=== PATIENT | male | born 1970 | race Caucasian/White ===

== ENCOUNTER 2020-07-10 22:19 | Inpatient (IN) | payer OTHER ==
--- NOTE | 2020-07-10 22:36 | PDOC ---
History of Present Illness - General Chief Complaint: Pain Stated Complaint: LEFT SIDED PAIN & NAUSEA Time Seen by Provider: 07/10/20 22:32 History Source: Patient Exam Limitations: No Limitations - History of Present Illness Initial Comments: 50 yo M history HTN, prior EtOH abuse- drank 1 bottle of vodka per day up until a month ago when he states he quit cold turkey. Presents to the ED with LUQ pain, nausea, vomiting clear scant liquid for the past 1 day. He admits to recen t emotional distress as he has been dealing with a divorce. He states he has not had a drink in a month. He notes severe tremors in his hands. Now with dry heaves in the ED. Denies any allergies to meds. Past History - Medical History Allergies/Adverse Reactions: Allergies Allergy/AdvReac Type Severity Reaction Status Date / Time No Known Allergies Allergy Unverified 07/10/20 22:43 Home Medications: Ambulatory Orders Metoprolol Succinate 50 mg PO DAILY 07/10/20 Review of Systems - Review of Systems Able to Perform ROS?: Yes Comments:: GENERAL/CONSTITUTIONAL: No fever or chills. No weakness. HEAD, EYES, EARS, NOSE AND THROAT: No change in vision. No ear pain or discharge. No sore throat. CARDIOVASCULAR: No chest pain or shortness of breath. RESPIRATORY: No cough, wheezing, or hemoptysis. GASTROINTESTINAL: +N/V. No diarrhea or constipation. GENITOURINARY: No dysuria, frequency, or change in urination. MUSCULOSKELETAL: No joint or muscle swelling or pain. No neck or back pain. +Tremors SKIN: No rash. NEUROLOGIC: No headache, vertigo, loss of consciousness, or change in strength/sensation. ENDOCRINE: No increased thirst. No abnormal weight change. HEMATOLOGIC/LYMPHATIC: No anemia, easy bleeding, or history of blood clots. ALLERGIC/IMMUNOLOGIC: No hives or skin allergy. *Physical Exam - Physical Exam GENERAL: Awake, alert, and fully oriented. Appears anxious, diaphoretic. Actively dry heaving. +AOB HEAD: No signs of trauma EYES: PERRLA, EOMI, sclera anicteric, conjunctiva clear ENT: Auricles normal inspection, hearing grossly normal, nares patent, oropharynx clear without exudates. Dry mucosa NECK: Normal ROM, supple, no lymphadenopathy, JVD, or masses LUNGS: Breath sounds equal, clear to auscultation bilaterally. No wheezes, and no crackles HEART: Tachycardic with regular rhythm, normal S1 and S2, no murmurs, rubs or gallops ABDOMEN: Soft, nontender, normoactive bowel sounds. No guarding, no rebound. No masses EXTREMITIES: +Coarse tremors to the hands B/L. Normal range of motion, no edema. No clubbing or cyanosis. No cords, erythema, or tenderness NEUROLOGICAL: Cranial nerves II through XII grossly intact. Normal speech, normal gait. Motor and sensation intact SKIN: Diaphoretic, cool, normal turgor, no rashes or lesions noted. ED Treatment Course - LABORATORY CBC & Chemistry Diagram: 07/10/20 22:54 07/11/20 04:45 Medical Decision Making - Medical Decision Making 07/10/20 22:45 Patient states he stopped drinking 1 month ago, however, his symptoms are most consistent with alcohol withdrawal. As such, will give zofran and IV valium. Labs pending. If labs normal and symptoms improve, will recommend transfer to [facility] for detox. 07/10/20 23:59 Pt with multiple abnormal labs. Alcohol level is slightly elevated, which would confirm suspicion of EtOH withdrawal. Labs also show liver failure with transaminitis and elevated bilirubin. Anion gap is elevated as well. Drawing additional labs- lipase, B-hydroxybutyrate, lactate. Will continue fluids and benzos. Trop is elevated as well, which was just discussed via phone with Dr. Howe. She recommended that we not give aspirin at this time due to liver failure with low platelet count, risk of bleeding. EKG with no ST changes. Will plan for admission once additional labs have resulted. 07/11/20 00:43 Labs discussed with patient at bedside. He now admits to drinking alcohol yesterday, which is more consistent with the clinical picture. Will continue fluids. Awaiting remainder of labs for dispo. 07/11/20 01:46 Pt reports feeling better after second dose of valium. Tremors improving. Lactate has resulted, elevated at ~4. Still waiting for B-hydroxybutyrate results. Will give 1L of D5NS while waiting for that result. Also ordered banana bag. 07/11/20 02:35 B-hydroxybutyrate is positive. Will continue fluids with D5NS. Patient has no tremors at rest, but when he lifts his hands, he does have coarse tremors. He reports feeling much better than before. No longer diaphoretic, no longer vomiting. Microblog sent to hospitalist for admission. Will continue to monitor. 07/11/20 02:58 Case d/w Dr. Rodriguez. Will need a tele bed. RN contacting nursing ice platform supervisor at the [facility]. Will continue to monitor patient in ED, as he is at risk for DTs if not closely monitored. 07/11/20 04:36 Three liters given to patient. Will repeat labs to reassess. 07/11/20 05:50 Repeat labs show troponin negative x2 (initial troponin was detectable), B- hydroxybutyrate has decreased to ~15, and lactate has decreased to 2.1. Anion gap has normalized. Glucose is elevated, however, he was receiving D5NS to correct the ketones. Will continue fluids. Patient has also just received ativan 2mg IV, as he was becoming diaphoretic again. D/w hospitalist, agrees that patient can stay at [facility] as he is moving in the right direction. 07/11/20 06:19 Pt transported up to 2nd floor. Discharge - Discharge Information Problems reviewed: Yes Clinical Impression/Diagnosis: Hyperbilirubinemia, Thrombocytopenia, Alcoholic ketoacidosis Alcohol withdrawal Qualifiers: Complication of substance-induced condition: uncomplicated Qualified Code(s): F 10.230 - Alcohol dependence with withdrawal, uncomplicated Liver failure Qualifiers: Liver failure chronicity: unspecified chronicity Hepatic coma status: without hepatic coma Qualified Code(s): K72.90 - Hepatic failure, unspecified without coma Condition: Stable - Admission Yes - Follow up/Referral - Patient Discharge Instructions - Post Discharge Activity
[2020-07-10] MEDS ORDERED: SODIUM CHLORIDE 1,000 ML IV STA (22:37)
[2020-07-10] MEDS ORDERED: diazePAM CARPU-JECT 10 MG/2 ML DISP.SYRIN IVPUSH ONE ×2 (22:37→23:38)
[2020-07-10] MEDS ORDERED: FAMOTIDINE 20 MG/50 ML IVPB 20 MG/50 ML MG IVPB ONE ×2 (22:37→22:54)
[2020-07-10] MEDS ORDERED: ONDANSETRON 4 MG/2 ML VIAL IVPUSH ONE (22:37)
[2020-07-10] MEDS ORDERED: diazePAM CARPU-JECT 10 MG/2 ML DISP.SYRIN ONE (22:46)
[2020-07-10] MEDS ORDERED: ONDANSETRON 4 MG/2 ML VIAL ONE (22:47)
[2020-07-10 23:04] LABS: BASO % 0.6 % (0-2.0); EOS % 0.1 % (0-4.5); HEMATOCRIT 46.2 % (35.4-49); HEMOGLOBIN 15.9 GM/dl (11.7-16.9); LYMPH % 19.8 % (8-40); MCH 32.3 pg (25.7-33.7); MCHC 34.4 g/dl (32.0-35.9); MEAN CELL VOLUME 93.9 fl (80-96); MEAN PLT VOLUME 8.1 fl (7.5-11.1); MONO % 6.3 % (3.8-10.2); NEUT % 73.2 % (42.8-82.8); RBC 4.92 M/mm3 (4.00-5.60); RDW 15.2 % (11.9-15.9); WHITE BLOOD COUNT 5.4 K/mm3 (4.0-10.8)
[2020-07-10 23:11] LABS: PLATELET COUNT 52 K/MM3 (134-434)
[2020-07-10 23:17] LABS: ALBUMIN 4.9 g/dl (3.4-5.0); BILIRUBIN,TOTAL 7.6 mg/dl (0.2-1); CALCIUM 9.4 mg/dl (8.5-10); CREATININE 0.7 mg/dl (0.55-1.3); POTASSIUM 3.7 mmol/L (3.5-5.1); TOT PROT 8.5 g/dl (6.4-8.2)
[2020-07-11] MEDS ORDERED: diazePAM CARPU-JECT 10 MG/2 ML DISP.SYRIN ONE ×2 (00:14→03:13)
[2020-07-11] MEDS ORDERED: FOLIC ACID INJECTION - 1 MG, THIAMINE HCL 100 MG, MULTIVIT INJECTION ADULT 10 ML in SOD... IVPB ONE (01:41)
[2020-07-11] MEDS ORDERED: DEXTROSE 5%-NORMAL SALINE 1,000 ML IV ONE ×3 (01:42→05:27)
[2020-07-11] MEDS ORDERED: THIAMINE HCL 200 MG/2 ML VIAL ONE (01:58)
[2020-07-11] MEDS ORDERED: MULTIVIT INJ. ADULT COMBO WITH VIT K 1 COMBO 10 ML VIAL IV ONE (02:00)
[2020-07-11] MEDS ORDERED: FOLIC ACID 5 MG/1 ML ONE (02:00)
[2020-07-11] MEDS ORDERED: chlordiazePOXIDE HCL 25 MG CAPSULE PO ONE (02:24)
[2020-07-11] MEDS ORDERED: chlordiazePOXIDE HCL 25 MG CAPSULE ONE (02:25)
[2020-07-11 02:56] LABS: EPI CELLS 9 /uL (0-25.1); HYALINE CASTS 8 /uL (0-3.1); PH,URINE 5.5 (5.0-8.0); URINE APPEARANCE CLOUDY; URINE BILIRUBIN 2+ (NEGATIVE); URINE COLOR ORANGE; URINE GLUCOSE (UA) NEGATIVE (NEGATIVE); URINE KETONE 2+ (NEGATIVE); URINE LEUK ESTERASE TRACE (NEGATIVE); URINE NITRITE POSITIVE (NEGATIVE); URINE PROTEIN 3+ (NEGATIVE); URINE WBC 11 /uL (0-25.8)
[2020-07-11] MEDS ORDERED: diazePAM CARPU-JECT 10 MG/2 ML DISP.SYRIN IVPUSH ONE (03:13)
[2020-07-11 03:38] LABS: URINE BACTERIA 11.4 /uL (0-1359); URINE CRYSTALS NONE SEEN /hpf
[2020-07-11] MEDS ORDERED: LORazepam 2 MG/ML SDV VIAL ONE (05:30)
[2020-07-11 05:41] LABS: ALBUMIN 3.2 g/dl (3.4-5.0); BILIRUBIN,TOTAL 5.9 mg/dL (0.2-1); BLOOD UREA NITROGEN 13.4 mg/dL (7-18); CALCIUM 7.6 mg/dL (8.5-10.1); CREATININE 0.8 mg/dL (0.55-1.3); POTASSIUM 3.5 mmol/L (3.5-5.1); TOT PROT 6.1 g/dl (6.4-8.2)
--- OUTSIDE RECORDS SUMMARY | 2020-07-11 06:09 | XMS ---
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 Value Range Interpretation Description Data Source(s ) Supporting Code Document(s ) Specimen 04/21/20 <td> Tripp expiration 20 23:59 04/18/2020 [facility] date of Blood 07:11</td><td> Care Specimen Corporation Expiration Date </td><td> 04/21/2020 23:59
</td> Antibody NEG <td> Tripp Screen 04/18/2020 [facility] 07:11</td><td> Care Antibody Corporation Screen </td><td> NEG
</td> ABO-Rh Type O POS <td> Tripp 04/18/2020 [facility] 07:11</td><td> Care ABO-Rh Type Corporation </td><td> O POS
</td> ID Date Data Source [id number] 04/18/2020 12:00:00 AM EDT [facility] [place] Name Value Range Interpretation Code Description Data Caitlyn rce(s) Supporting Document(s ) SARS-COV-2 Tripp RNA RT-PCR [facility] This lab was ordered by [facility] and reported by [facility]. ID Date Data Source [id number] 02/09/2020 05:36:00 PM EDT [facility] Body And Frame Technician:AMADO HAHN Name Value Range Interpretation Description Data Sup porting Code Source(s) Document(s ) Glucose 89 mg/dL [place] [Mass/volume] [facility] in Capillary blood by Glucometer ID Date Data Source [id number] 01/09/2020 06:56:00 AM EDT [facility] [place] [id number] Corporation Name Value Range Interpretation Description Data Sup porting Code Source(s) Document(s ) Erythrocytes 4.29 m/mm3 4.70-6 <td> Tripp [#/volume] in .10 01/09/2020 [facility] Blood m/mm3 06:56</td><td> Health Care RBC Corporation </td><td><para graph styleCode="Tristen d"> 4.29 L </paragraph><b r/> (4.70-6.10) m/mm3 </td> Leukocytes 6.6 k/mm3 4.8-10 <td> Tripp [#/volume] in .8 01/09/2020 [facility] Blood by k/mm3 06:56</td><td> Health Care Automated count WBC </td><td> Corporati on 6.6
(4.8-10.8) k/mm3 </td> Hemoglobin 13.3 g/dL 14.0-1 <td> Tripp [Mass/volume] in 8.0 01/09/2020 [facility] Blood g/dL 06:56</td><td> Health Care HGB Corporation </td><td><para graph styleCode="Tristen d"> 13.3 L </paragraph><b r/> (14.0-18.0) g/dL </td> Erythrocyte mean 31.0 pg 27.0-3 <td> Tripp corpuscular 1.5 pg 01/09/2020 [facility] hemoglobin 06:56</td><td> Health Care [Entitic mass] MCH </td><td> Corporatio n by Automated count 31.0
(27.0-31.5) pg </td> Erythrocyte mean 90.4 fL 80.0-9 <td> Tripp corpuscular 4.0 fL 01/09/2020 [facility] volume [Entitic 06:56</td><td> Health Ca re volume] by MCV </td><td> Corporation Automated count 90.4
(80.0-94.0) fL </td> Erythrocyte mean 34.3 % 32.0-3 <td> Tripp corpuscular 6.0 % 01/09/2020 [facility] hemoglobin 06:56</td><td> Health Care concentration MCHC Corporation [Mass/volume] in </td><td> Blood from Fetus by Automated 34.3 count
(32.0-36.0) % </td> Hematocrit 38.8 % 40.8-4 <td> Tripp [Volume 6.9 % 01/09/2020 County Fraction] of 06:56</td><td> Health Care Blood by HCT Corporation Automated count </td><td><para graph styleCode="Tristen d"> 38.8 L </paragraph><b r/> (40.8-46.9) % </td> Erythrocyte 14.3 % 11.5-1 <td> Tripp distribution 4.5 % 01/09/2020 [facility] width [Entitic 06:56</td><td> Health Car e volume] by RDW </td><td> Actionality Automated count 14.3
(11.5-14.5) % </td> Lymphocytes 42.7 % 16.0-5 <td> Tripp [#/volume] in 0.0 % 01/09/2020 [facility] Blood by 06:56</td><td> Health Care Automated count Lymphocytes Corporation </td><td> 42.7
(16.0-50.0) % </td> Monocytes/Leukoc 11.4 % 0.0-11 <td> Tripp ytes [Pure .0 % 01/09/2020 [facility] number fraction] 06:56</td><td> Health C are in Blood by Monocytes. Corporation Automated count </td><td><para graph styleCode="Tristen d"> 11.4 H </paragraph><b r/> (0.0-11.0) % </td> Basophils 0.8 % 0.0-2. <td> Tripp [#/volume] in 0 % 01/09/2020 [facility] Blood by 06:56</td><td> Health Care Automated count Basophils Corporation </td><td> 0.8
(0.0-2.0) % </td> Platelet mean 10.3 fL 9.8-12 <td> Tripp volume [Entitic .8 fL 01/09/2020 [facility] volume] in Blood 06:56</td><td> Health C are by Automated MPV </td><td> Corporation count 10.3
(9.8-12.8) fL </td> Platelets 91 k/mm3 160-41 <td> Tripp [#/volume] in 0 01/09/2020 [facility] Blood by k/mm3 06:56</td><td> Health Care Automated count Platelet Count Corporati on </td><td><par agraph styleCode="Tristen d"> 91 L </paragraph><b r/> (160-410) k/mm3 </td> Basophils+Eosino 3.3 % 0.0-5. <td> Tripp phils+Monocytes 0 % 01/09/2020 [facility] [#/volume] in 06:56</td><td> Health Care Blood by Eosinophils Corporation Automated count </td><td> 3.3
(0.0-5.0) % </td> Immature 1.1 % 0.0-0. <td> Tripp granulocytes/100 5 % 01/09/2020 [facility] leukocytes in 06:56</td><td> Health Care Blood by IG% Corporation Automated count </td><td><para graph styleCode="Tristen d"> 1.1 H </paragraph><b r/> (0.0-0.5) %
The IG fraction represents metamyelocytes , myelocytes and/or
promyelocytes and is only reported as part of the automated
differential when found at a percentage of less than 6.
If higher than 6%, a manual differential will be performed.

(0.0-0.5) % </td> Glucose 76 mg/dL 70-105 <td> Tripp [Mass/volume] in mg/dL 01/09/2020 [facility] Blood 06:56</td><td> Health Care Glucose-Serum Actionality </td><td> 76
(70-105) mg/dL </td> Sodium 135 mEq/L 135-14 <td> Tripp [Moles/volume] 5 01/09/2020 [facility] in Serum or mEq/L 06:56</td><td> Health Care Plasma Sodium-Serum Actionality </td><td> 135
(135-145) mEq/L </td> Anisocytosis Slight <td> Tripp [Presence] in 01/07/2020 [facility] Blood by Light 05:42</td><td> Health Car e microscopy Anisocytosis Corporation </td><td> Slight
</td> Neutrophils [#] 40.7 % 34.0-7 <td> Tripp in Body fluid by 6.0 % 01/09/2020 [facility] Manual count 06:56</td><td> Health Care Neutrophils Actionality </td><td> 40.7
(34.0-76.0) % </td> Creatinine 0.63 mg/dL 0.72-1 <td> Tripp [Moles/volume] .25 01/09/2020 [facility] in Serum or mg/dL 06:56</td><td> Health Care Plasma Creatinine. Corporation </td><td><para graph styleCode="Tristen d"> 0.63 L </paragraph><b r/> (0.72-1.25) mg/dL </td> Chloride 104 mEq/L 98-107 <td> Tripp [Moles/volume] mEq/L 01/09/2020 [facility] in Serum or 06:56</td><td> Health Care Plasma Chloride Actionality </td><td> 104
(98-107) mEq/L </td> Urea nitrogen 17 mg/dL 6-22 <td> Tripp [Mass/volume] in mg/dL 01/09/2020 [facility] Blood 06:56</td><td> Health Care BUN </td><td> Corporation 17
(6-22) mg/dL </td> Aspartate 76 U/L 4-35 <td> Tripp aminotransferase U/L 01/09/2020 [facility] [Enzymatic 06:56</td><td> Health Care activity/volume] AST (SGOT) Corporation in Serum or </td><td><para Plasma graph styleCode="Tristen d"> 76 H </paragraph><b r/> (4-35) U/L </td> Carbon dioxide, 21 mEq/L 22-30 <td> Tripp total mEq/L 01/09/2020 [facility] [Moles/volume] 06:56</td><td> Health Car e in Serum or CO2 Corporation Plasma </td><td><para graph styleCode="Tristen d"> 21 L </paragraph><b r/> (22-30) mEq/L </td> Potassium 3.5 mEq/L 3.5-5. <td> Tripp [Moles/volume] 1 01/09/2020 [facility] in Serum or mEq/L 06:56</td><td> Health Care Plasma Potassium-Seru Corporation m </td><td> 3.5
(3.5-5.1) mEq/L </td> Anion gap in 10 mEq/L 7-13 <td> Tripp Serum or Plasma mEq/L 01/09/2020 [facility] 06:56</td><td> Health Care Anion Gap Corporation </td><td> 10
(7-13) mEq/L </td> Bilirubin.total 3.9 mg/dL 0.2-1. <td> Tripp [Mass/volume] in 3 01/09/2020 [facility] Blood mg/dL 06:56</td><td> Health Care Bilirubin - Corporation Total </td><td><para graph styleCode="Tristen d"> 3.9 H </paragraph><b r/> (0.2-1.3) mg/dL </td> Calcium 8.5 mg/dL 8.6-10 <td> Tripp [Mass/volume] in .2 01/09/2020 [facility] Blood mg/dL 06:56</td><td> Health Care Calcium Corporation </td><td><para graph styleCode="Tristen d"> 8.5 L </paragraph><b r/> (8.6-10.2) mg/dL </td> Albumin 3.6 g/dL 3.4-4. <td> Tripp [Mass/volume] in 8 g/dL 01/09/2020 [facility] Serum or Plasma 06:56</td><td> Health Ca re Albumin Corporation </td><td> 3.6
(3.4-4.8) g/dL </td> Proteins - Total 6.6 g/dL 6.4-8. <td> Tripp 3 g/dL 01/09/2020 [facility] 06:56</td><td> Health Care Proteins - Corporation Total </td><td> 6.6
(6.4-8.3) g/dL </td> Alanine 85 U/L 6-55 <td> Tripp aminotransferase U/L 01/09/2020 [facility] [Enzymatic 06:56</td><td> Health Care activity/volume] ALT (SGPT) Corporation in Serum or </td><td><para Plasma graph styleCode="Tristen d"> 85 H </paragraph><b r/> (6-55) U/L </td> Hemolysis index No <td> Tripp of Serum or Hemolysis 01/09/2020 [facility] Plasma 06:56</td><td> Health Care Hemolysis Corporation Index </td><td> No Hemolysis
</td> Phosphate 4.1 mg/dL 2.3-4. <td> Tripp [Mass/volume] in 7 01/09/2020 [facility] Serum or Plasma mg/dL 06:56</td><td> Health Ca re Inorganic Actionality Phosphorus </td><td> 4.1
(2.3-4.7) mg/dL </td> Globulin 3.0 gm/dL 2.9-4. <td> Tripp [Mass/volume] in 0 01/09/2020 [facility] Serum gm/dL 06:56</td><td> Health Care Globulin Corporation </td><td> 3.0
(2.9-4.0) gm/dL </td> Lipemic index of No Lipemia <td> Tripp Serum or Plasma 01/09/2020 [facility] 06:56</td><td> Health Care Lipemia Index Corporation </td><td> No Lipemia
</td> Icteric index of Slightly <td> Tripp Serum or Plasma 01/09/2020 [facility] 06:56</td><td> Health Care Icteric Index Corporation </td><td> Slightly
</td> Magnesium 2.1 mg/dL 1.6-2. <td> Tripp [Mass/volume] in 6 01/09/2020 [facility] Serum or Plasma mg/dL 06:56</td><td> Health Ca re Magnesium Actionality Level </td><td> 2.1
(1.6-2.6) mg/dL </td> ID Date Data Source [id number] 01/04/2020 01:01:00 PM EDT [facility] [place] [id number] Corporation Name Value Range Interpretation Description Data Sup porting Code Source(s) Document(s ) Chest (PACSIMAGE <td> 01/04/2020 [facility] Portable 13:01</td><td> [facility] ) Final Chest Portable Health Care Result </td><td>IdentiGEN Name: tomasz GREENBERG MRN: styleCode="Ital [id number] Sex: M ics">(PACSIMAGE : 1970 Location: M )</paragraph><b Admitting r/>
Physician: Final Result Requesting Physician:

AMELIA ISLAS Name: DIONICIO, Exam: FIONA AGUILAR PORTABLE
01/04/2020 13:09 Sex: M HISTORY:
Alcohol : 1970 intoxication. Location: M R/o covid
PROCEDURE: Admitting Portable AP Physician: radiograph
IMPRESSION: Requesting LIFE SUPPORT Physician: and MONITORING AMELIA ISLAS DEVICES: None.

A metal plate Exam: CHEST projecting PORTABLE over the 01/04/2020 sternal notch 13:09 is likely

<br/ outside the > HISTORY: patient. Alcohol LUNGS and intoxication. PLEURA: There R/o covid are low lung

volumes. Hazy PROCEDURE: peripheral Portable AP opacities in radiograph both mid lungs may be

artifactual. IMPRESSION: However, early pneumonia

cannot be LIFE SUPPORT entirely and MONITORING excluded. DEVICES: None. Recommend deep A metal plate inspiratory, projecting preferably PA
and lateral over the radiographs. sternal notch HEART and is likely MEDIASTINUM: outside the Stable patient. cardiovascular
silhouette LUNGS and PLEURA: There Resident are low lung Radiologist: volumes. Hazy Attending peripheral Radiologist:
Lauren opacities in Joel HUSAIN both mid lungs Finalizing may be Radiologist: artifactual. Lauren However, early Joel HUSAIN
Transcribed pneumonia Date: cannot be 01/04/2020 entirely 13:11 excluded. Finalized Date: Recommend deep 01/04/2020 inspiratory, 13:13
preferably PA and lateral radiographs.
HEART and MEDIASTINUM: Stable cardiovascular silhouette

Resident Radiologist:
Attending Radiologist: Lauren Maldonado MD
Finalizing Radiologist: Lauren Maldonado MD
Transcribed Date: 01/04/2020 13:11
Finalized Date: 01/04/2020 13:13

</td > Head (PACSIMAGE <td> 01/04/2020 Tripp Without 09:58</td><td> County Contrast-C ) Final Head Without Health Care T Result Contrast-CT Corporation Name: DIONICIO </td><td>dimitris AGUILAR MRN: raph [id number] Sex: M styleCode="Ital : ics">(PACSIMAGE 1970 Location: M Admitting )</paragraph><b Physician: r/>
EMERGENCY Final Result SERVICE Requesting

Physician: JANENE Name: DIONICIOALESSANDRO LAUREN Exam: CT HEAD
C- 01/04/2020 10:24 Sex: M CLINICAL
HISTORY: : 1970 Submitted Location: M clinical
information: Admitting Injury Physician: COMPARISON: CT EMERGENCY head without SERVICE contrast
12/24/2019 Requesting TECHNIQUE: Physician: JANENE Noncontrast CT ALESSANDRO scan of the

head is Exam: CT HEAD performed from C- 01/04/2020 the base of 10:24 the skull to

<br/ the vertex > CLINICAL utilizing axial HISTORY: image Submitted acquisition. clinical Multiplanar information: reformatted Injury images are

provided. COMPARISON: CT Up-to-date CT head without equipment using contrast Automatic 12/24/2019 Exposure

Control, dose TECHNIQUE: modulation, and Noncontrast CT iterative scan of the reconstruction head is dose reduction performed from software was
employed. The the base of total study DLP the skull to is the vertex approximately utilizing axial 965.3 mGy-cm. image FINDINGS: acquisition. There is no
evidence of Multiplanar acute reformatted intracranial images are hemorrhage, provided. mass effect

or shift of the Up-to-date midline CT equipment structures. No using Automatic evidence of Exposure hydrocephalus. Control, dose The visualized
paranasal modulation, sinuses are and iterative well-aerated. reconstruction The mastoid dose reduction air cells are software well-aerated.
The visualized was employed. orbits are
unremarkable. The total There is no study DLP is depressed approximately calvarial 965.3 mGy-cm. fracture. Midline scalp

hematoma at FINDINGS: the anterior

vertex. There is no IMPRESSION: evidence of No CT evidence acute of acute intracranial intracranial hemorrhage, hemorrhage, mass effect focal mass
effect, or or shift of hydrocephalus. the midline structures. No evidence of Resident hydrocephalus. Radiologist:
Attending The Radiologist: visualized Jeannie Smith MD paranasal Finalizing sinuses are Radiologist: well-aerated. Jeannie Smith MD The mastoid Transcribed
Date: air cells are 01/04/2020 well-aerated. 10:16 The visualized Finalized Date: orbits are 01/04/2020 unremarkable. 10:30
There is no depressed calvarial fracture. Midline scalp hematoma
at the anterior vertex.

IMPRESSION:

No CT evidence of acute intracranial hemorrhage, focal mass effect,
or hydrocephalus.

Resident Radiologist:
Attending Radiologist: Jeannie Smith MD
Finalizing Radiologist: Jeannie Smith MD
Transcribed Date: 01/04/2020 10:16
Finalized Date: 01/04/2020 10:30

</td > ID Date Data Source [id number] 01/04/2020 12:00:00 AM T [facility] Name Value Range Interpretation Code Description Data Caitlyn rce(s) Supporting Document(s ) SARS-COV-2 Tripp RNA RT-PCR [facility] This lab was ordered by [facility] and reported by [facility]. ID Date Data Source [id number] 12/25/2019 01:47:00 AM EDT [facility] [place] [id number] Corporation Name Value Range Interpretation Description Data Sup porting Code Source(s) Document(s ) Erythrocytes 4.29 m/mm3 4.70-6 <td> 12/25/2019 [facility] [#/volume] in .10 01:47</td><td> [facility] Blood m/mm3 RBC Health Care </td><td><[employer] raph styleCode="Bold "> 4.29 L </paragraph>
(4.70-6.10) m/mm3 </td> Hemoglobin 13.1 g/dL 14.0-1 <td> 12/25/2019 Tripp [Mass/volume] 8.0 01:47</td><td> [facility] in Blood g/dL HGB Health Care </td><td><[employer] raph styleCode="Bold "> 13.1 L </paragraph>
(14.0-18.0) g/dL </td> Leukocytes 7.3 k/mm3 4.8-10 <td> 12/25/2019 Tripp [#/volume] in .8 01:47</td><td> [facility] Blood by k/mm3 WBC </td><td> Health Care Automated count Corporation 7.3
(4.8-10.8) k/mm3 </td> Erythrocyte 91.6 fL 80.0-9 <td> 12/25/2019 Tripp mean 4.0 fL 01:47</td><td> [facility] corpuscular MCV </td><td> Health Care volume [Entitic Corporation volume] by 91.6 Automated count
(80.0-94.0) fL </td> Erythrocyte 30.5 pg 27.0-3 <td> 12/25/2019 Tripp mean 1.5 pg 01:47</td><td> County corpuscular MCH </td><td> Health Care hemoglobin Actionality [Entitic mass] 30.5 by Automated count
(27.0-31.5) pg </td> Erythrocyte 33.3 % 32.0-3 <td> 12/25/2019 Tripp mean 6.0 % 01:47</td><td> [facility] corpuscular MCHC </td><td> Health Care hemoglobin Actionality concentration 33.3 [Mass/volume] in Blood from
Fetus by (32.0-36.0) % Automated count </td> Hematocrit 39.3 % 40.8-4 <td> 12/25/2019 Tripp [Volume 6.9 % 01:47</td><td> County Fraction] of HCT Health Care Blood by </td><td><etta Actionality Automated count raph styleCode="Bold "> 39.3 L </paragraph>
(40.8-46.9) % </td> Erythrocyte 13.4 % 11.5-1 <td> 12/25/2019 Tripp distribution 4.5 % 01:47</td><td> County width [Entitic RDW </td><td> Health Car e volume] by Actionality Automated count 13.4
(11.5-14.5) % </td> Monocytes/Leuko 10.0 % 0.0-11 <td> 12/24/2019 [facility] cytes [Pure .0 % 17:15</td><td> County number Monocytes. Health Care fraction] in </td><td> Actionality Blood by Automated count 10.0
(0.0-11.0) % </td> Platelet mean 9.8 fL 9.8-12 <td> 12/25/2019 [facility] r volume [Entitic .8 fL 01:47</td><td> County volume] in MPV </td><td> Health Care Blood by Actionality Automated count 9.8
(9.8-12.8) fL </td> Lymphocytes 64.0 % 16.0-5 <td> 12/24/2019 [facility] [#/volume] in 0.0 % 17:15</td><td> County Blood by Lymphocytes Health Care Automated count </td><td><etta Corporat ion raph styleCode="Bold "> 64.0 H </paragraph>
(16.0-50.0) % </td> Platelets 129 k/mm3 160-41 <td> 12/25/2019 [facility] [#/volume] in 0 01:47</td><td> County Blood by k/mm3 Platelet Count Health Care Automated count </td><td><etta Corporat ion raph styleCode="Bold "> 129 L </paragraph>
(160-410) k/mm3 </td> Ovalocytes Few <td> 12/24/2019 Tripp [Presence] in 17:15</td><td> [facility] Blood by Light Ovalocytes Health Care microscopy </td><td> Corporation Few
</td> Basophils+Eosin 1.0 % 0.0-5. <td> 12/24/2019 [facility] ophils+Monocyte 0 % 17:15</td><td> County s [#/volume] in Eosinophils Health Care Blood by </td><td> Corporation Automated count 1.0
(0.0-5.0) % </td> Atypical Lymphs 4.0 % % <td> 12/24/2019 [facility] 17:15</td><td> County Atypical Lymphs Health Care </td><td><para Corporation graph styleCode="Bold "> 4.0 * AB </paragraph>
% </td> Basophils 0.0 % 0.0-2. <td> 12/24/2019 [facility] [#/volume] in 0 % 17:15</td><td> [facility] Blood by Basophils Health Care Automated count </td><td> Corporation 0.0
(0.0-2.0) % </td> Neutrophils [#] 21.0 % 34.0-7 <td> 12/24/2019 [facility] in Body fluid 6.0 % 17:15</td><td> County by Manual count Neutrophils Health Care </td><td><[employer] raph styleCode="Bold "> 21.0 L </paragraph>
(34.0-76.0) % </td> Glucose 142 mg/dL 70-105 <td> 12/25/2019 [facility] [Mass/volume] mg/dL 01:46</td><td> County in Blood Glucose-Serum Health Care </td><td><[employer] raph styleCode="Bold "> 142 H </paragraph>
(70-105) mg/dL </td> Chloride 111 mEq/L 98-107 <td> 12/25/2019 [facility] [Moles/volume] mEq/L 01:46</td><td> County in Serum or Chloride Health Care Plasma </td><td><[employer] raph styleCode="Bold "> 111 H </paragraph>
(98-107) mEq/L </td> Sodium 144 mEq/L 135-14 <td> 12/25/2019 [facility] [Moles/volume] 5 01:46</td><td> County in Serum or mEq/L Sodium-Serum Health Care Plasma </td><td> Actionality 144
(135-145) mEq/L </td> Carbon dioxide, 23 mEq/L 22-30 <td> 12/25/2019 [facility] total mEq/L 01:46</td><td> County [Moles/volume] CO2 </td><td> Health Car e in Serum or Corporation Plasma 23
(22-30) mEq/L </td> Potassium 3.9 mEq/L 3.5-5. <td> 12/25/2019 [facility] [Moles/volume] 1 01:46</td><td> County in Serum or mEq/L Potassium-Serum Health Care Plasma </td><td> Actionality 3.9
(3.5-5.1) mEq/L </td> Creatinine 0.70 mg/dL 0.72-1 <td> 12/25/2019 [facility] [Moles/volume] .25 01:46</td><td> County in Serum or mg/dL Creatinine. Health Care Plasma </td><td><[employer] raph styleCode="Bold "> 0.70 L </paragraph>
(0.72-1.25) mg/dL
Note Significant Change in Values

(0.72-1.25) mg/dL </td> Aspartate 65 U/L 4-35 <td> 12/25/2019 [facility] aminotransferas U/L 01:46</td><td> County e [Enzymatic AST (SGOT) Health Care activity/volume </td><td><etta Corporat ion ] in Serum or raph Plasma styleCode="Bold "> 65 H </paragraph>
(4-35) U/L </td> Alanine 69 U/L 6-55 <td> 12/25/2019 [facility] aminotransferas U/L 01:46</td><td> County e [Enzymatic ALT (SGPT) Health Care activity/volume </td><td><etta Corporat ion ] in Serum or raph Plasma styleCode="Bold "> 69 H </paragraph>
(6-55) U/L </td> Urea nitrogen 12 mg/dL 6-22 <td> 12/25/2019 [facility] r [Mass/volume] mg/dL 01:46</td><td> County in Blood BUN </td><td> Health Care Actionality 12
(6-22) mg/dL </td> Albumin 3.6 g/dL 3.4-4. <td> 12/25/2019 [facility] [Mass/volume] 8 g/dL 01:46</td><td> County in Serum or Albumin Health Care Plasma </td><td> Actionality 3.6
(3.4-4.8) g/dL </td> Bilirubin.total 0.7 mg/dL 0.2-1. <td> 12/25/[address] [facility] [address] [Mass/volume] 3 01:46</td><td> County in Blood mg/dL Bilirubin - Health Care Total Actionality </td><td> 0.7
(0.2-1.3) mg/dL </td> Calcium 8.0 mg/dL 8.6-10 <td> 12/25/2019 [facility] [Mass/volume] .2 01:46</td><td> [facility] in Blood mg/dL Calcium Health Care </td><td><[employer] raph styleCode="Bold "> 8.0 L </paragraph>
(8.6-10.2) mg/dL </td> Proteins - 6.3 g/dL 6.4-8. <td> 12/25/2019 [facility] Total 3 g/dL 01:46</td><td> [facility] Proteins - Health Care [employer] </td><td><[employer] raph styleCode="Bold "> 6.3 L </paragraph>
(6.4-8.3) g/dL </td> Anion gap in 10 mEq/L 7-13 <td> 12/25/2019 [facility] Serum or Plasma mEq/L 01:46</td><td> [facility] Anion Gap Health Care </td><td> Actionality 10
(7-13) mEq/L </td> Lipemic index No Lipemia <td> 12/25/2019 [facility] er of Serum or 01:46</td><td> [facility] Plasma Lipemia Index Health [facility] </td><td> Actionality No Lipemia
</td> Icteric index Non <td> 12/25/2019 [facility] r of Serum or Icteric 01:46</td><td> [facility] Plasma Icteric Index Health Care </td><td> Actionality Non Icteric
</td> Hemolysis index No <td> 12/25/2019 [facility] of Serum or Hemolysis 01:46</td><td> [facility] Plasma Hemolysis Index Health Care </td><td> Actionality No Hemolysis
</td> Globulin 2.7 gm/dL 2.9-4. <td> 12/25/2019 [facility] [Mass/volume] 0 01:46</td><td> [facility] in Serum gm/dL Globulin Health Care </td><td><[employer] raph styleCode="Bold "> 2.7 L </paragraph>
(2.9-4.0) gm/dL </td> Prothrombin 12.7 secs 9.8-12 <td> 12/24/2019 [facility] time (PT) .0 17:15</td><td> [facility] secs Prothrombin Health Care Time. [facility] </td><td><etta raph styleCode="Bold "> 12.7 H </paragraph>
(9.8-12.0) secs </td> Amylase 90 U/L 22-100 <td> 12/24/2019 [facility] [Enzymatic U/L 17:15</td><td> [facility] activity/volume Amylase Level Health Car e ] in Serum or </td><td> [facility] Plasma 90
(22-100) U/L </td> Magnesium 2.1 mg/dL 1.6-2. <td> 12/25/2019 [facility] [Mass/volume] 6 01:46</td><td> [facility] in Serum or mg/dL Magnesium Level Health Care Plasma </td><td> [facility] 2.1
(1.6-2.6) mg/dL </td> Phosphate 4.2 mg/dL 2.3-4. <td> 12/25/2019 [facility] [Mass/volume] 7 01:46</td><td> [facility] in Serum or mg/dL Inorganic Health Care Plasma Phosphorus [facility] </td><td> 4.2
(2.3-4.7) mg/dL </td> aPTT panel - 26.7 secs 25.0-3 <td> 12/24/2019 [facility] Platelet poor 2.0 17:15</td><td> [facility] plasma secs Partial Health Care Thromboplastin [facility] Time </td><td> 26.7
(25.0-32.0) secs </td> ID Date Data Source [id number] 12/24/2019 05:42:00 PM EDT [facility] [id number] Corporation Name Value Range Interpretation Description Data Sup porting Code Source(s) Document(s ) Chest (PACSIMAGE <td> 12/24/2019 [facility] Portable 17:19</td><td> [facility] ) Chest Portable Health Care Final Result </td><td><paragrap Corporat ion Name: caden LOPEZ, styleCode="Italics TRAUMA MRN: ">(PACSIMAGE [id number] Sex: F : )</paragraph>
12/05/1969
Final Location: F Result Admitting

Physician: Name: JOHN, EMERGENCY TRAUMA SERVICE
MRN: Requesting [id number] Sex: F Physician:
JANENE FRANCOIS : 12/05/1969 Exam: Location: F CHEST
PORTABLE Admitting 12/24/2019 Physician: 17:27 EMERGENCY SERVICE EXAM: AP
Chest Requesting Portable 1 Physician: JANENE FRANCOIS COMPARISON:

None Exam: CHEST INDICATION: PORTABLE Trauma 12/24/2019 17:27 FINDINGS: The right

hemidiaphragm EXAM: AP Chest is elevated. Portable 1 view The right

costophrenic COMPARISON: sulcus is None partially

imaged, INDICATION: Trauma limiting evaluation.

Hypoinflated FINDINGS: lungs with

crowded lung The right markings, hemidiaphragm is otherwise elevated. The grossly right costophrenic clear. No sulcus evidence of
is pleural partially imaged, effusion or limiting pneumothorax. evaluation. The Hypoinflated lungs cardiomediast
inal with crowded silhouette lung markings, is within otherwise grossly normal clear. No evidence limits.
IMPRESSION: of pleural Elevated effusion or right pneumothorax. The hemidiaphragm cardiomediastinal . silhouette Hyperinflated
is but grossly within normal clear limits. lungs.

IMPRESSION: Resident

Radiologist: Elevated right Trice hemidiaphragm. Milo HUSAIN Hyperinflated but Radiolody grossly clear Resident
Attending lungs. Radiologist:

<br Danisha />
Jose Luis HUSAIN Resident Finalizing Radiologist: Radiologist: Trice Raman Radiolody Resident Jose Luis HUSAIN
Transcribed Attending Date: Radiologist: Danisha 12/24/2019 Jose Luis HUSAIN 17:47
Finalized Finalizing Date: Radiologist: Danisha 12/24/2019 Jose Luis HUSAIN 17:52
Transcribed Date: 12/24/2019 17:47
Finalized Date: 12/24/2019 17:52

</td> Head (PACSIMAGE <td> 12/24/2019 [facility] Without 17:42</td><td> County Contrast- ) Head Without Health Care CT Final Result Contrast-CT Corporation Name: </td><td><paragrap JOHN, h TRAUMA MRN: styleCode="Italics [id number] Sex: ">(PACSIMAGE F : 12/05/1969 )</paragraph>
Location: F
Final Admitting Result Physician:

EMERGENCY Name: JOHN, SERVICE TRAUMA Requesting
MRN: Physician: [id number] Sex: F HAYES CABRERA
Exam: CT : 12/05/1969 HEAD C- Location: F 12/24/2019
18:00 Admitting CLINICAL Physician: INDICATION: EMERGENCY SERVICE Trauma
TECHNIQUE: CT Requesting images of the Physician: HAYES head were CABRERA obtained

without the Exam: CT HEAD C- administratio 12/24/2019 18:00 n of contrast.

COMPARISON: CLINICAL None. INDICATION: Trauma FINDINGS: Ventricular

caliber is TECHNIQUE: CT within normal images of the head limits for were obtained the patients without the age. There administration is no
intracranial of contrast. mass or mass

effect. COMPARISON: None. Density of the brain

parenchyma is FINDINGS: within normal

limits. There Ventricular is no caliber is within demarcated normal limits for territorial the patients infarct. No
acute age. intraparenchy
There is mal or no intracranial subarachnoid mass or mass hemorrhage is effect. present.
Density There is no of the brain extraaxial parenchyma is collection. within normal The limits. There visualized
is paranasal no demarcated sinuses are territorial well aerated. infarct. The mastoid
No air cells are acute well aerated. intraparenchymal The or subarachnoid visualized hemorrhage is orbits are present. unremarkable.
There There is no is no extraaxial calvarial collection. fracture.

There is The visualized scalp paranasal sinuses laceration at are well aerated. the vertex of
the head. The mastoid air IMPRESSION: cells are well No acute aerated. intracranial
The hemorrhage or visualized orbits calvarial are unremarkable. fracture..
There is no Resident calvarial Radiologist: fracture. Trice
Wolfgang Pedraza MD is scalp Radiolody laceration at the Resident vertex of the Attending head. Radiologist:

Pa Gonzalez IMPRESSION: No MD acute intracranial Finalizing hemorrhage or Radiologist: calvarial Pa Gonzalez fracture.. Transcribed

<br Date: /> Resident 12/24/2019 Radiologist: 18:03 Trice Pedraza MD Finalized Radiolody Resident Date:
12/24/2019 Attending 18:30 Radiologist: Pa Gonzalez MD
Finalizing Radiologist: Pa Gonzalez MD
Transcribed Date: 12/24/2019 18:03
Finalized Date: 12/24/2019 18:30

</td> Cervical (PACSIMAGE <td> 12/24/2019 [facility] Spine 17:42</td><td> County W/Out ) Cervical Spine Health Care Contrast- Final Result W/Out Contrast-CT Corporati on CT Name: </td><td><paragrap caden LOPEZ TRAUMA MRN: styleCode="Italics [id number] Sex: ">(PACSIMAGE F : 12/05/1969 )</paragraph>
Location: F
Final Admitting Result Physician:

EMERGENCY Name: JOHN, SERVICE TRAUMA Requesting
MRN: Physician: [id number] Sex: F HAYES CABRERA
Exam: CT : 12/05/1969 C SPINE C- Location: F 12/24/2019
18:00 Admitting CLINICAL Physician: INDICATION: EMERGENCY SERVICE Trauma
TECHNIQUE: Requesting CT of the Physician: HAYES cervical RICK spine was

performed Exam: CT C SPINE without C- 12/24/2019 administratio 18:00 n of

intravenous CLINICAL contrast. INDICATION: Trauma COMPARISON: None

available. TECHNIQUE:
CT of INTERPRETATIO the cervical spine N: was performed ALIGNMENT: without The administration craniocervica
l junction is of intravenous unremarkable. contrast. The spinal

alignment is COMPARISON: None maintained. available. BONES: There

is no acute INTERPRETATION: fracture.

DISCS AND ALIGNMENT: The FACET JOINTS: craniocervical The junction is intervertebra unremarkable. The l disc spaces spinal are
preserved.. alignment is EXTRASPINAL: maintained. There is no
prevertebral BONES: There is no soft tissue acute fracture. swelling. A
hypodense DISCS AND FACET nodule is JOINTS: The noted in the intervertebral left thyroid disc spaces are gland preserved.. measuring
at least 2.8 EXTRASPINAL: There cm in is no prevertebral diameter. soft tissue There is no swelling. A significant
narrowing of hypodense nodule the neural is noted in the foramina or left thyroid gland osseous measuring spinal canal.
at least 2.8 cm in IMPRESSION: diameter. No evidence

for acute There is no cervical significant vertebral narrowing of the fracture or neural foramina or traumatic osseous subluxation.
spinal A large left canal. thyroid

nodule is IMPRESSION: present, and
No correlation evidence for acute with cervical vertebral nonemergent fracture or thyroid traumatic sonography is
advised. subluxation. A large left thyroid Resident nodule is present, Radiologist: and correlation Attending
Radiologist: with nonemergent Pa Gonzalez thyroid sonography is advised. Finalizing Radiologist:

<br Pa Gonzalez />

MD Resident Transcribed Radiologist: Date:
12/24/2019 Attending 18:30 Radiologist: Finalized Pa Gonzalez MD Date:
12/24/2019 Finalizing 18:32 Radiologist: Pa Gonzalez MD
Transcribed Date: 12/24/2019 18:30
Finalized Date: 12/24/2019 18:32

</td> ID Date Data Source [id number] 12/24/2019 05:15:00 PM EDT [facility] [place] [id number] Corporation Name Value Range Interpretation Description Data Source(s ) Supporting Code Document(s ) ABO-Rh Type O POS <td> [facility] 12/24/2019 [facility] 17:15</td><td> Care ABO-Rh Type Corporation </td><td> O POS
</td> Antibody NEG <td> [facility] Screen 12/24/2019 [facility] 17:15</td><td> Care Antibody Corporation Screen </td><td> NEG
</td> Specimen 12/27/19 <td> [facility] expiration 20 23:59 12/24/2019 [facility] date of Blood 17:15</td><td> Care Specimen Corporation Expiration Date </td><td> 12/27/2019 23:59
</td> ID Date Data Source [id number] 12/23/2019 02:29:10 PM EDT [facility] [id number] Corporation Name Value Range Interpretation Description Data Source(s ) Supporting Code Document(s ) No Results Normal (applies < [facility] information to non-numeric align="left">< [facility] ealt exists for results) content Care this episode. styleCode="[employer] d"> No Results information exists for this episode.
< /content></th> ID Date Data Source [id number] 12/20/2019 09:00:00 AM EDT [facility] Name Value Range Interpretation Code Description Data Caitlyn rce(s) Supporting Document(s ) SARS-COV-2 [facility] RNA RT-PCR [facility] This lab was ordered by [facility] and reported by [facility]. ID Date Data Source CHMROUTINECCDA.[id number] 12/15/2019 03:20:00 AM EDT [facility] -0400 Name Value Range Interpretation Description Data Sup porting Code Source(s) Document(s ) Cannabinoids <content Saint [Presence] in styleCode="Tristen Andrews Urine by Screen d">Cannabinoid Medical method >50 ng/mL s Center </content>NEGA TIVE NG/ML (Reference Range: not available)<br/ > ID Date Data Source Liver 12/15/2019 01:37:00 AM EDT [facility] Profile.[id number] Name Value Range Interpretation Description Data Sup porting Code Source(s) Document(s ) Alkaline 38-126 <content [facility] phosphatase styleCode="Bold"> Juliana [Enzymatic Alkaline Medical activity/volume] Phosphatase (ALP) Cente r in Serum or Plasma </content>103 IU/L<content styleCode="Italic s"> (38-126 IU/L)</content> Alanine 7-50 Above high <content Saint aminotransferase normal styleCode="Bold"> Josh hs [Enzymatic Alanine Medical activity/volume] Aminotransferase Center in Serum or Plasma (ALT) </content>73 IU/L H<content styleCode="Italic s"> (7-50 IU/L)</content> Aspartate 17-59 Above high <content Saint aminotransferase normal styleCode="Bold"> Josh hs [Enzymatic Aspartate Medical activity/volume] Aminotransferase Center in Serum or Plasma (AST) </content>135 IU/L H<content styleCode="Italic s"> (17-59 IU/L)</content> Albumin 3.5-5.0 <content Saint [Mass/volume] in styleCode="Bold"> Josh hs Serum or Plasma Albumin Medical </content>4.7 Center G/DL<content styleCode="Italic s"> (3.5-5.0 G/DL)</content> Bilirubin.total 0.2-1.3 Above high <content Saint [Mass/volume] in normal styleCode="Bold"> Josh hs Serum or Plasma Bilirubin Total Medical </content>2.3 Center MG/DL H<content styleCode="Italic s"> (0.2-1.3 MG/DL)</content> UNK 0.0-0.3 <content Saint styleCode="Bold"> Juliana Bilirubin, Direct Medical </content>< 0.2 Center MG/DL<content styleCode="Italic s"> (0.0-0.3 MG/DL)</content> ID Date Data Source HematologyRou.[id number] 12/15/2019 01:37:00 AM EDT [facility] 0400 Name Value Range Interpretation Description Data Sup porting Code Source(s) Document(s ) Leukocytes 4.4-11.0 <content Saint [#/volume] in styleCode="Bold Juliana Blood by ">White Blood Medical Automated count Cell Count Center </content>9.49 KCUMM<content styleCode="Ital ics"> (4.4-11.0 KCUMM)</content > Erythrocyte mean 80.0-100 <content Saint corpuscular .0 styleCode="Bold Juliana volume [Entitic ">Mean Medical volume] by Corpuscular Center Automated count Volume </content>87.4 FL<content styleCode="Ital ics"> (80.0-100.0 FL)</content> Erythrocytes 4.4-5.9 <content Saint [#/volume] in styleCode="Bold Juliana Blood by ">Red Blood Medical Automated count Cell Count Center </content>4.77 MCUMM<content styleCode="Ital ics"> (4.4-5.9 MCUMM)</content > Hematocrit 41.0-53. <content Saint [Volume 0 styleCode="Bold Juliana Fraction] of ">Hematocrit Medical Blood by </content>41.7 Center Automated count %<content styleCode="Ital ics"> (41.0-53.0 %)</content> Hemoglobin 13.5-17. <content Saint [Mass/volume] in 5 styleCode="Bold Juliana Blood ">Hemoglobin Medical </content>14.8 Center G/DL<content styleCode="Ital ics"> (13.5-17.5 G/DL)</content> Erythrocyte mean 26.0-34. <content Saint corpuscular 0 styleCode="Bold Juliana hemoglobin ">Mean Medical [Entitic mass] Corposcular Center by Automated Hemoglobin count </content>31.0 PG<content styleCode="Ital ics"> (26.0-34.0 PG)</content> Platelet mean 8.0-11.0 <content Saint volume [Entitic styleCode="Bold Juliana volume] in Blood ">Mean Platelet Medical by Automated Volume Center count </content>9.4 FL<content styleCode="Ital ics"> (8.0-11.0 FL)</content> Erythrocyte mean 32.0-37. <content Saint corpuscular 0 styleCode="Bold Juliana hemoglobin ">Mean Corpus. Medical concentration Hgb Center [Mass/volume] by Concentration Automated count (MCHC) </content>35.5 G/DL<content styleCode="Ital ics"> (32.0-37.0 G/DL)</content> Platelets 130-400 Below low normal <content Saint [#/volume] in styleCode="Bold Juliana Blood by ">Platelet Medical Automated count Count Center </content>125 KCUMM L<content styleCode="Ital ics"> (130-400 KCUMM)</content > Erythrocyte 11.5-14. <content Saint distribution 5 styleCode="Bold Juliana width [Ratio] by ">Red Cell Medical Automated count Distribution Center Width </content>12.3 %<content styleCode="Ital ics"> (11.5-14.5 %)</content> UNK 0 <content Saint styleCode="Bold Juliana ">Nucleated Red Medical Blood Cell Center </content>0.0 /100<content styleCode="Ital ics"> (0 /100)</content> UNK 0.0 <content Saint styleCode="Bold Juliana ">Nucleated Red Medical Blood Cell Center Count </content>0.00 KCUMM<content styleCode="Ital ics"> (0.0 KCUMM)</content > ID Date Data Source GFR(Creatinine).[id number] 12/15/2019 01:37:00 AM EDT [facility] 0-0400 Name Value Range Interpretation Code Description Data Caitlyn rce(s) Supporting Document(s ) UNK > 60 <content [facility] styleCode="Bold"> Medical Cent er EGFR </content>126 GFR<content styleCode="Italic s"> (> 60 GFR)</content> ID Date Data Source [id number] 12/15/2019 01:37:00 AM EDT [facility] Name Value Range Interpretation Description Data Sup porting Code Source(s) Document(s ) Carbon dioxide, 22-30 <content Saint total styleCode="Bold"> Juliana [Moles/volume] in Carbon Dioxide Medical Serum or Plasma </content>28 Center MEQ/L<content styleCode="Italic s"> (22-30 MEQ/L)</content> Sodium 137-145 <content Saint [Moles/volume] in styleCode="Bold"> Ulis phs Serum or Plasma Sodium Medical </content>141 Center MEQ/L<content styleCode="Italic s"> (137-145 MEQ/L)</content> Chloride 98-107 <content Saint [Moles/volume] in styleCode="Bold"> Luis phs Serum or Plasma Chloride Medical </content>100 Center MEQ/L<content styleCode="Italic s"> (98-107 MEQ/L)</content> Potassium 3.5-5.3 <content Saint [Moles/volume] in styleCode="Bold"> Luis phs Serum or Plasma Potassium Medical </content>4.0 Center MEQ/L<content styleCode="Italic s"> (3.5-5.3 MEQ/L)</content> Creatinine 0.5-1.3 <content Saint [Mass/volume] in styleCode="Bold"> Josh hs Serum or Plasma Creatinine Medical </content>0.7 Center MG/DL<content styleCode="Italic s"> (0.5-1.3 MG/DL)</content> UNK 9-20 <content Saint styleCode="Bold"> Juliana BUN </content>15 Medical MG/DL<content Center styleCode="Italic s"> (9-20 MG/DL)</content> Calcium 8.4-10. <content Saint [Mass/volume] in 2 styleCode="Bold"> Josh hs Serum or Plasma Calcium Medical </content>9.1 Center MG/DL<content styleCode="Italic s"> (8.4-10.2 MG/DL)</content> Glucose 74-106 Above high <content Saint [Mass/volume] in normal styleCode="Bold"> Josh hs Serum or Plasma Glucose Medical </content>136 Center MG/DL H<content styleCode="Italic s"> (74-106 MG/DL)</content> UNK > 60 <content Saint styleCode="Bold"> Juliana EGFR Medical </content>126 Center GFR<content styleCode="Italic s"> (> 60 GFR)</content> Alkaline 38-126 <content [facility] phosphatase styleCode="Bold"> Juliana [Enzymatic Alkaline Medical activity/volume] Phosphatase (ALP) Cente r in Serum or Plasma </content>103 IU/L<content styleCode="Italic s"> (38-126 IU/L)</content> Aspartate 17-59 Above high <content Saint aminotransferase normal styleCode="Bold"> Josh hs [Enzymatic Aspartate Medical activity/volume] Aminotransferase Center in Serum or Plasma (AST) </content>135 IU/L H<content styleCode="Italic s"> (17-59 IU/L)</content> Bilirubin.total 0.2-1.3 Above high <content Saint [Mass/volume] in normal styleCode="Bold"> Josh hs Serum or Plasma Bilirubin Total Medical </content>2.3 Center MG/DL H<content styleCode="Italic s"> (0.2-1.3 MG/DL)</content> Alanine 7-50 Above high <content Saint aminotransferase normal styleCode="Bold"> Josh hs [Enzymatic Alanine Medical activity/volume] Aminotransferase Center in Serum or Plasma (ALT) </content>73 IU/L H<content styleCode="Italic s"> (7-50 IU/L)</content> Albumin 3.5-5.0 <content Saint [Mass/volume] in styleCode="Bold"> Josh hs Serum or Plasma Albumin Medical </content>4.7 Center G/DL<content styleCode="Italic s"> (3.5-5.0 G/DL)</content> ID Date Data Source [id number] 11/03/2019 05:38:00 AM EST [facility] [id number] Corporation Name Value Range Interpretation Description Data Sup porting Code Source(s) Document(s ) Hematocrit 41.0 % 40.8-4 <td> 11/03/2019 [facility] [Volume 6.9 % 05:38</td><td> [facility] Fraction] of HCT </td><td> Health Care Blood by Action[employer] Automated count 41.0
(40.8-46.9) % </td> Hemoglobin 13.7 g/dL 14.0-1 <td> 11/03/2019 [facility] [Mass/volume] 8.0 05:38</td><td> [facility] in Blood g/dL HGB Health Care </td><td><[employer] raph styleCode="Bold "> 13.7 L </paragraph>
(14.0-18.0) g/dL </td> Erythrocytes 4.36 m/mm3 4.70-6 <td> 11/03/2019 [facility] r [#/volume] in .10 05:38</td><td> [facility] Blood m/mm3 RBC Health Care </td><td><[employer] raph styleCode="Bold "> 4.36 L </paragraph>
(4.70-6.10) m/mm3 </td> Leukocytes 6.3 k/mm3 4.8-10 <td> 11/03/2019 [facility] [#/volume] in .8 05:38</td><td> [facility] Blood by k/mm3 WBC </td><td> Health Care Automated count Corporation 6.3
(4.8-10.8) k/mm3 </td> Erythrocyte 94.0 fL 80.0-9 <td> 11/03/2019 [facility] mean 4.0 fL 05:38</td><td> [facility] corpuscular MCV </td><td> Health Care volume [Entitic Corporation volume] by 94.0 Automated count
(80.0-94.0) fL </td> Erythrocyte 13.6 % 11.5-1 <td> 11/03/2019 [facility] distribution 4.5 % 05:38</td><td> County width [Entitic RDW </td><td> Health Car e volume] by Corporation Automated count 13.6
(11.5-14.5) % </td> Erythrocyte 33.4 % 32.0-3 <td> 11/03/2019 [facility] mean 6.0 % 05:38</td><td> [facility] corpuscular MCHC </td><td> Health Care hemoglobin Corporation concentration 33.4 [Mass/volume] in Blood from
Fetus by (32.0-36.0) % Automated count </td> Platelet mean 10.9 fL 9.8-12 <td> 11/03/2019 [facility] r volume [Entitic .8 fL 05:38</td><td> County volume] in MPV </td><td> Health Care Blood by Corporation Automated count 10.9
(9.8-12.8) fL </td> Erythrocyte 31.4 pg 27.0-3 <td> 11/03/2019 [facility] mean 1.5 pg 05:38</td><td> [facility] corpuscular MCH </td><td> Health Care hemoglobin Corporation [Entitic mass] 31.4 by Automated count
(27.0-31.5) pg </td> Basophils 1.1 % 0.0-2. <td> 10/30/2019 [facility] [#/volume] in 0 % 06:45</td><td> [facility] Blood by Basophils [facility] Automated count </td><td> Actionality 1.1
(0.0-2.0) % </td> Monocytes/Leuko 5.4 % 0.0-11 <td> 10/30/2019 [facility] cytes [Pure .0 % 06:45</td><td> County number Monocytes. Health Care fraction] in </td><td> Corporation Blood by Automated count 5.4
(0.0-11.0) % </td> Basophils+Eosin 0.0 % 0.0-5. <td> 10/30/2019 [facility] ophils+Monocyte 0 % 06:45</td><td> County s [#/volume] in Eosinophils [facility] Blood by </td><td> Corporation Automated count 0.0
(0.0-5.0) % </td> Lymphocytes 15.3 % 16.0-5 <td> 10/30/2019 [facility] [#/volume] in 0.0 % 06:45</td><td> [facility] Blood by Lymphocytes [facility] Automated count </td><td><etta Corporat ion raph styleCode="Bold "> 15.3 L </paragraph>
(16.0-50.0) % </td> Platelets 91 k/mm3 160-41 <td> 11/03/2019 [facility] [#/volume] in 0 05:38</td><td> [facility] Blood by k/mm3 Platelet Count [facility] Care Automated count </td><td><etta Corporat ion raph styleCode="Bold "> 91 L </paragraph>
(160-410) k/mm3
Few small platelet aggregates seen.

(160-410) k/mm3 </td> Sodium 136 mEq/L 135-14 <td> 11/03/2019 [facility] [Moles/volume] 5 05:38</td><td> County in Serum or mEq/L Sodium-Serum Health Care Plasma </td><td> Actionality 136
(135-145) mEq/L </td> Glucose 86 mg/dL 70-105 <td> 11/03/2019 [facility] [Mass/volume] mg/dL 05:38</td><td> County in Blood Glucose-Serum Health Care </td><td> Actionality 86
(70-105) mg/dL </td> Immature 0.4 % 0.0-0. <td> 10/30/2019 [facility] granulocytes/10 5 % 06:45</td><td> [facility] 0 leukocytes in IG% </td><td> Health Ca re Blood by Actionality Automated count 0.4
(0.0-0.5) %
The IG fraction represents metamyelocytes, myelocytes and/or
promyelocytes and is only reported as part of the automated
differential when found at a percentage of less than 6.
If higher than 6%, a manual differential will be performed.

(0.0-0.5) % </td> Neutrophils [#] 77.8 % 34.0-7 <td> 10/30/2019 [facility] in Body fluid 6.0 % 06:45</td><td> [facility] by Manual count Neutrophils Health Care </td><td><etta Actionality raph styleCode="Bold "> 77.8 H </paragraph>
(34.0-76.0) % </td> Chloride 104 mEq/L 98-107 <td> 11/03/2019 [facility] [Moles/volume] mEq/L 05:38</td><td> County in Serum or Chloride Health Care Plasma </td><td> Actionality 104
(98-107) mEq/L </td> Carbon dioxide, 24 mEq/L 22-30 <td> 11/03/2019 [facility] total mEq/L 05:38</td><td> [facility] [Moles/volume] CO2 </td><td> Health Car e in Serum or Corporation Plasma 24
(22-30) mEq/L </td> Potassium 3.8 mEq/L 3.5-5. <td> 11/03/2019 [facility] [Moles/volume] 1 05:38</td><td> County in Serum or mEq/L Potassium-Serum [facility] Care Plasma </td><td> Actionality 3.8
(3.5-5.1) mEq/L </td> Urea nitrogen 18 mg/dL 6-22 <td> 11/03/2019 [facility] r [Mass/volume] mg/dL 05:38</td><td> County in Blood BUN </td><td> [facility] Care Actionality 18
(6-22) mg/dL </td> Creatinine 0.76 mg/dL 0.72-1 <td> 11/03/2019 [facility] [Moles/volume] .25 05:38</td><td> County in Serum or mg/dL Creatinine. [facility] Plasma </td><td> Actionality 0.76
(0.72-1.25) mg/dL </td> Aspartate 82 U/L 4-35 <td> 11/01/2019 [facility] aminotransferas U/L 06:08</td><td> County e [Enzymatic AST (SGOT) Health Care activity/volume </td><td><etta Corporat ion ] in Serum or raph Plasma styleCode="Bold "> 82 H </paragraph>
(4-35) U/L </td> Bilirubin.total 2.2 mg/dL 0.2-1. <td> 11/01/2019 [facility] [Mass/volume] 3 06:08</td><td> County in Blood mg/dL Bilirubin - [facility] Total Actionality </td><td><etta raph styleCode="Bold "> 2.2 H </paragraph>
(0.2-1.3) mg/dL </td> Proteins - 6.8 g/dL 6.4-8. <td> 11/01/2019 [facility] Total 3 g/dL 06:08</td><td> [facility] Proteins - Health Care Total Corporation </td><td> 6.8
(6.4-8.3) g/dL </td> Alanine 60 U/L 6-55 <td> 11/01/2019 [facility] aminotransferas U/L 06:08</td><td> [facility] e [Enzymatic ALT (SGPT) Health Care activity/volume </td><td><etta Corporat ion ] in Serum or raph Plasma styleCode="Bold "> 60 H </paragraph>
(6-55) U/L </td> Anion gap in 8 mEq/L 7-13 <td> 11/03/2019 [facility] Serum or Plasma mEq/L 05:38</td><td> [facility] Anion Gap [facility] </td><td> Actionality 8
(7-13) mEq/L </td> Albumin 3.8 g/dL 3.4-4. <td> 11/01/2019 [facility] [Mass/volume] 8 g/dL 06:08</td><td> [facility] in Serum or Albumin Health Care Plasma </td><td> Actionality 3.8
(3.4-4.8) g/dL </td> Calcium 9.0 mg/dL 8.6-10 <td> 11/03/2019 [facility] [Mass/volume] .2 05:38</td><td> [facility] in Blood mg/dL Calcium [facility] </td><td> Actionality 9.0
(8.6-10.2) mg/dL </td> Hemolysis index No <td> 11/03/2019 [facility] of Serum or Hemolysis 05:38</td><td> [facility] Plasma Hemolysis Index [facility] </td><td> Actionality No Hemolysis
</td> Globulin 3.0 gm/dL 2.9-4. <td> 11/01/2019 [facility] [Mass/volume] 0 06:08</td><td> [facility] in Serum gm/dL Globulin [facility] Care </td><td> Actionality 3.0
(2.9-4.0) gm/dL </td> Phosphate 2.6 mg/dL 2.3-4. <td> 11/01/2019 [facility] [Mass/volume] 7 06:08</td><td> [facility] in Serum or mg/dL Inorganic Health Care Plasma Phosphorus [facility] </td><td> 2.6
(2.3-4.7) mg/dL </td> Icteric index Slightly <td> 11/03/2019 [facility] r of Serum or 05:38</td><td> [facility] Plasma Icteric Index Health Care </td><td> [facility] Slightly
</td> aPTT panel - 29.4 secs 25.0-3 <td> 10/30/2019 [facility] Platelet poor 2.0 06:45</td><td> [facility] plasma secs Partial Health Care Thromboplastin [facility] Time </td><td> 29.4
(25.0-32.0) secs </td> Prothrombin 13.3 secs 9.8-12 <td> 10/30/2019 [facility] time (PT) .0 06:45</td><td> [facility] secs Prothrombin Health Care Time. [facility] </td><td><etta raph styleCode="Bold "> 13.3 H </paragraph>
(9.8-12.0) secs </td> Lipemic index No Lipemia <td> 11/03/2019 [facility] er of Serum or 05:38</td><td> [facility] Plasma Lipemia Index Health Care </td><td> [facility] No Lipemia
</td> Magnesium 1.8 mg/dL 1.6-2. <td> 11/01/2019 [facility] [Mass/volume] 6 06:08</td><td> [facility] in Serum or mg/dL Magnesium Level Health Care Plasma </td><td> [facility] 1.8
(1.6-2.6) mg/dL </td> ID Date Data Source [id number] 10/30/2019 06:45:00 AM EST [facility] [place] [id number] Corporation Name Value Range Interpretation Description Data Source(s ) Supporting Code Document(s ) ABO-Rh Type O POS <td> [facility] 10/30/2019 [facility] 06:45</td><td> Care ABO-Rh Type Corporation </td><td> O POS
</td> Specimen 11/02/19 <td> [facility] expiration 20 23:59 10/30/2019 [facility] date of Blood 06:45</td><td> Care Specimen Corporation Expiration Date </td><td> 11/02/2019 23:59
</td> Antibody NEG <td> [facility] Screen 10/30/2019 [facility] 06:45</td><td> Care Antibody Corporation Screen </td><td> NEG
</td> ID Date Data Source [id number] 10/30/2019 06:36:00 AM EST [facility] [place] [id number] Corporation Name Value Range Interpretation Description Data Sup porting Code Source(s) Document(s ) Chest (PACSIMAGE <td> [facility] Portable 10/30/2019 [facility] ) 06:36</td><td Care Final Result > Chest Corporation Name: Nico GREENBERG, </td><td><par LAUREN MRN: [id number] Sex: styleCode="It M : alics">(PACSI 1970 MAGE Location: Admitting )</paragraph> Physician:

EMERGENCY Final Result SERVICE Requesting

Physician: Name: SHELLY GREENBERG, Exam: LAUREN CHEST
PORTABLE 10/30/2019 Sex: M 07:33
HISTORY: : Admission. 1970 COMPARISON: Location: None. FINDINGS:
Semiupright Admitting view of the Physician: chest EMERGENCY provided. SERVICE Heart size
normal. Lung Requesting jones Physician: clear. SHELLY HIGH IMPRESSION: Lung jones

clear. Exam: CHEST PORTABLE Resident 10/30/2019 Radiologist: 07:33 Attending Radiologist:

<br Danisha /> Jose Luis HUSAIN HISTORY: Finalizing Admission. Radiologist: Danisha

Jose Luis HUSAIN COMPARISON: Transcribed None. Date:

10/30/2019 FINDINGS: 09:22 Finalized

Date: Semiupright 10/30/2019 view of the 09:23 chest provided. Heart size normal. Lung
jones clear.

IMPRESSION: Lung jones clear.

< br/> Resident Radiologist:
Attending Radiologist: Danisha Amaya MD
Finalizing Radiologist: Danisha Amaya MD
Transcribed Date: 10/30/2019 09:22
Finalized Date: 10/30/2019 09:23

</t d> ID Date Data Source [id number] 10/16/2019 06:46:00 AM EST [facility] [place] [id number] Corporation Name Value Range Interpretation Description Data Sup porting Code Source(s) Document(s ) Leukocytes 6.1 k/mm3 4.8-10 <td> [facility] [#/volume] in .8 10/16/2019 [facility] Blood by k/mm3 06:46</td><td> Health Care Automated count WBC </td><td> Corporati on 6.1
(4.8-10.8) k/mm3 </td> Erythrocytes 4.31 m/mm3 4.70-6 <td> [facility] [#/volume] in .10 10/16/2019 [facility] Blood m/mm3 06:46</td><td> Health Care RBC Corporation </td><td><para graph styleCode="Tristen d"> 4.31 L </paragraph><b r/> (4.70-6.10) m/mm3 </td> Erythrocyte mean 92.3 fL 80.0-9 <td> [facility] corpuscular 4.0 fL 10/16/2019 [facility] volume [Entitic 06:46</td><td> Health Ca re volume] by MCV </td><td> Corporation Automated count 92.3
(80.0-94.0) fL </td> Hematocrit 39.8 % 40.8-4 <td> [facility] [Volume 6.9 % 10/16/2019 [facility] Fraction] of 06:46</td><td> Health Care Blood by HCT Corporation Automated count </td><td><para graph styleCode="Tristen d"> 39.8 L </paragraph><b r/> (40.8-46.9) % </td> Erythrocyte mean 31.6 pg 27.0-3 <td> [facility] corpuscular 1.5 pg 10/16/2019 [facility] hemoglobin 06:46</td><td> Health Care [Entitic mass] [facility] [employer] by Automated </td><td><para count graph styleCode="Tristen d"> 31.6 H </paragraph><b r/> (27.0-31.5) pg </td> Erythrocyte mean 34.2 % 32.0-3 <td> [facility] corpuscular 6.0 % 10/16/2019 [facility] hemoglobin 06:46</td><td> Health Care concentration [facility] Actionality [Mass/volume] in </td><td> Blood from Fetus by Automated 34.2 count
(32.0-36.0) % </td> Hemoglobin 13.6 g/dL 14.0-1 <td> [facility] [Mass/volume] in 8.0 10/16/2019 [facility] Blood g/dL 06:46</td><td> Health Care HGB Actionality </td><td><para graph styleCode="Tristen d"> 13.6 L </paragraph><b r/> (14.0-18.0) g/dL </td> Platelet mean 10.9 fL 9.8-12 <td> [facility] volume [Entitic .8 fL 10/16/2019 [facility] volume] in Blood 06:46</td><td> Health C are by Automated MPV </td><td> Corporation count 10.9
(9.8-12.8) fL </td> Platelets 58 k/mm3 160-41 <td> [facility] [#/volume] in 0 10/16/2019 [facility] Blood by k/mm3 06:46</td><td> Health Care Automated count Platelet Count Corporati on </td><td><par agraph styleCode="Tristen d"> 58 L </paragraph><b r/> (160-410) k/mm3 </td> Lymphocytes 28.9 % 16.0-5 <td> [facility] [#/volume] in 0.0 % 10/13/2019 [facility] Blood by 17:38</td><td> Health Care Automated count Lymphocytes Corporation </td><td> 28.9
(16.0-50.0) % </td> Monocytes/Leukoc 12.9 % 0.0-11 <td> [facility] ytes [Pure .0 % 10/13/2019 [facility] number fraction] 17:38</td><td> Health C are in Blood by Monocytes. Corporation Automated count </td><td><para graph styleCode="Tristen d"> 12.9 H </paragraph><b r/> (0.0-11.0) % </td> Basophils+Eosino 0.5 % 0.0-5. <td> [facility]pp phils+Monocytes 0 % 10/13/2019 [facility] [#/volume] in 17:38</td><td> Health Care Blood by Eosinophils Corporation Automated count </td><td> 0.5
(0.0-5.0) % </td> Erythrocyte 13.7 % 11.5-1 <td> [facility] distribution 4.5 % 10/16/2019 [facility] width [Entitic 06:46</td><td> Health Car e volume] by RDW </td><td> Corporation Automated count 13.7
(11.5-14.5) % </td> Immature 0.5 % 0.0-0. <td> [facility] granulocytes/100 5 % 10/13/2019 [facility] leukocytes in 17:38</td><td> Health Care Blood by IG% </td><td> Corporation Automated count 0.5
(0.0-0.5) %
The IG fraction represents metamyelocytes , myelocytes and/or
promyelocytes and is only reported as part of the automated
differential when found at a percentage of less than 6.
If higher than 6%, a manual differential will be performed.

(0.0-0.5) % </td> Basophils 1.0 % 0.0-2. <td> [facility] [#/volume] in 0 % 10/13/2019 [facility] Blood by 17:38</td><td> Health Care Automated count Basophils Corporation </td><td> 1.0
(0.0-2.0) % </td> Potassium 3.7 mEq/L 3.5-5. <td> [facility] [Moles/volume] 1 10/16/2019 [facility] in Serum or mEq/L 06:46</td><td> Health Care Plasma Potassium-Seru Actionality </td><td> 3.7
(3.5-5.1) mEq/L </td> Sodium 135 mEq/L 135-14 <td> [facility] [Moles/volume] 5 10/16/2019 [facility] in Serum or mEq/L 06:46</td><td> Health Care Plasma Sodium-Serum Actionality </td><td> 135
(135-145) mEq/L </td> Chloride 103 mEq/L 98-107 <td> [facility] [Moles/volume] mEq/L 10/16/2019 [facility] in Serum or 06:46</td><td> Health Care Plasma Chloride Actionality </td><td> 103
(98-107) mEq/L </td> Neutrophils [#] 56.2 % 34.0-7 <td> [facility] in Body fluid by 6.0 % 10/13/2019 [facility] Manual count 17:38</td><td> Health Care Neutrophils Actionality </td><td> 56.2
(34.0-76.0) % </td> Glucose 117 mg/dL 70-105 <td> [facility] [Mass/volume] in mg/dL 10/16/2019 [facility] Blood 06:46</td><td> Health Care Glucose-Serum Corporation </td><td><para graph styleCode="Tristen d"> 117 H </paragraph><b r/> (70-105) mg/dL </td> Aspartate 110 U/L 4-35 <td> [facility] aminotransferase U/L 10/16/2019 [facility] [Enzymatic 06:46</td><td> Health Care activity/volume] AST (SGOT) Corporation in Serum or </td><td><para Plasma graph styleCode="Tristen d"> 110 H </paragraph><b r/> (4-35) U/L </td> Carbon dioxide, 23 mEq/L 22-30 <td> [facility] total mEq/L 10/16/2019 [facility] [Moles/volume] 06:46</td><td> Health Car e in Serum or CO2 </td><td> Corporation Plasma 23
(22-30) mEq/L </td> Urea nitrogen 15 mg/dL 6-22 <td> [facility] [Mass/volume] in mg/dL 10/16/2019 [facility] Blood 06:46</td><td> Health Care BUN </td><td> Corporation 15
(6-22) mg/dL </td> Bilirubin.total 2.5 mg/dL 0.2-1. <td> [facility] [Mass/volume] in 3 10/16/2019 [facility] Blood mg/dL 06:46</td><td> Health Care Bilirubin - Corporation Total </td><td><para graph styleCode="Tristen d"> 2.5 H </paragraph><b r/> (0.2-1.3) mg/dL </td> Alanine 83 U/L 6-55 <td> [facility] aminotransferase U/L 10/16/2019 [facility] [Enzymatic 06:46</td><td> Health Care activity/volume] ALT (SGPT) Corporation in Serum or </td><td><para Plasma graph styleCode="Tristen d"> 83 H </paragraph><b r/> (6-55) U/L </td> Creatinine 0.69 mg/dL 0.72-1 <td> [facility] [Moles/volume] .25 10/16/2019 [facility] in Serum or mg/dL 06:46</td><td> Health Care Plasma Creatinine. Corporation </td><td><para graph styleCode="Tristen d"> 0.69 L </paragraph><b r/> (0.72-1.25) mg/dL </td> Calcium 9.1 mg/dL 8.6-10 <td> [facility] [Mass/volume] in .2 10/16/2019 [facility] Blood mg/dL 06:46</td><td> Health Care Calcium Actionality </td><td> 9.1
(8.6-10.2) mg/dL </td> Globulin 3.0 gm/dL 2.9-4. <td> [facility] [Mass/volume] in 0 10/16/2019 [facility] Serum gm/dL 06:46</td><td> Health Care Globulin Actionality </td><td> 3.0
(2.9-4.0) gm/dL </td> Albumin 3.9 g/dL 3.4-4. <td> [facility] [Mass/volume] in 8 g/dL 10/16/2019 [facility] Serum or Plasma 06:46</td><td> Health Ca re Albumin Actionality </td><td> 3.9
(3.4-4.8) g/dL </td> Proteins - Total 6.9 g/dL 6.4-8. <td> [facility] 3 g/dL 10/16/2019 [facility] 06:46</td><td> Health Care Proteins - Corporation Total </td><td> 6.9
(6.4-8.3) g/dL </td> Hemolysis index No <td> [facility] of Serum or Hemolysis 10/16/2019 [facility] Plasma 06:46</td><td> Health Care Hemolysis Corporation Index </td><td> No Hemolysis
</td> Anion gap in 9 mEq/L 7-13 <td> [facility] Serum or Plasma mEq/L 10/16/2019 [facility] 06:46</td><td> Health Care Anion Gap Actionality </td><td> 9
(7-13) mEq/L </td> Magnesium 1.8 mg/dL 1.6-2. <td> [facility] [Mass/volume] in 6 10/16/2019 [facility] Serum or Plasma mg/dL 06:46</td><td> Health Ca re Magnesium Actionality Level </td><td> 1.8
(1.6-2.6) mg/dL </td> Phosphate 2.4 mg/dL 2.3-4. <td> [facility] [Mass/volume] in 7 10/13/2019 [facility] Serum or Plasma mg/dL 17:38</td><td> Health Ca re Inorganic Actionality Phosphorus </td><td> 2.4
(2.3-4.7) mg/dL </td> Icteric index of Slightly <td> [facility] Serum or Plasma 10/16/2019 [facility] 06:46</td><td> Health Care Icteric Index Corporation </td><td> Slightly
</td> Lipemic index of No Lipemia <td> [facility] Serum or Plasma 10/16/2019 [facility] 06:46</td><td> Health Care Lipemia Index Corporation </td><td> No Lipemia
</td> ID Date Data Source [id number] 08/24/2019 05:33:00 AM EST [facility] [place] [id number] Corporation Name Value Range Interpretation Description Data Sup porting Code Source(s) Document(s ) Leukocytes 8.0 k/mm3 4.8-10 <td> 08/24/2019 [facility] [#/volume] in .8 05:33</td><td> [facility] Blood by k/mm3 WBC </td><td> Health Care Automated count Actionality 8.0
(4.8-10.8) k/mm3 </td> Hemoglobin 13.1 g/dL 14.0-1 <td> 08/24/2019 [facility] [Mass/volume] in 8.0 05:33</td><td> County Blood g/dL HGB Health Care </td><td><[employer] raph styleCode="Bold "> 13.1 L </paragraph>
(14.0-18.0) g/dL </td> Hematocrit 40.5 % 40.8-4 <td> 08/24/2019 [facility] [Volume 6.9 % 05:33</td><td> County Fraction] of HCT Health Care Blood by </td><td><[employer] Automated count raph styleCode="Bold "> 40.5 L </paragraph>
(40.8-46.9) % </td> Erythrocyte mean 97.4 fL 80.0-9 <td> 08/24/[address] [facility] corpuscular 4.0 fL 05:33</td><td> County volume [Entitic MCV Health Care volume] by </td><td><[employer] Automated count raph styleCode="Bold "> 97.4 H </paragraph>
(80.0-94.0) fL </td> Erythrocytes 4.16 4.70-6 <td> 08/24/2019 [facility] [#/volume] in m/mm3 .10 05:33</td><td> County Blood m/mm3 RBC Health Care </td><td><[employer] raph styleCode="Bold "> 4.16 L </paragraph>
(4.70-6.10) m/mm3 </td> Erythrocyte 13.0 % 11.5-1 <td> 08/24/2019 [facility] distribution 4.5 % 05:33</td><td> County width [Entitic RDW </td><td> Health Car e volume] by Actionality Automated count 13.0
(11.5-14.5) % </td> Platelet mean 10.2 fL 9.8-12 <td> 08/24/2019 [facility] r volume [Entitic .8 fL 05:33</td><td> County volume] in Blood MPV </td><td> Health C are by Automated Corporation count 10.2
(9.8-12.8) fL </td> Erythrocyte mean 32.3 % 32.0-3 <td> 08/24/2019 [facility] corpuscular 6.0 % 05:33</td><td> County hemoglobin [facility] </td><td> Health Care concentration Corporation [Mass/volume] in 32.3 Blood from Fetus by Automated
count (32.0-36.0) % </td> Erythrocyte mean 31.5 pg 27.0-3 <td> 08/24/2019 [facility] corpuscular 1.5 pg 05:33</td><td> County hemoglobin MCH </td><td> Health Care [Entitic mass] Corporation by Automated 31.5 count
(27.0-31.5) pg </td> Basophils+Eosino 0.0 % 0.0-5. <td> 08/12/2019 [facility] phils+Monocytes 0 % 13:36</td><td> County [#/volume] in Eosinophils Health Care Blood by </td><td> Corporation Automated count 0.0
(0.0-5.0) % </td> Lymphocytes 12.4 % 16.0-5 <td> 08/12/2019 [facility] [#/volume] in 0.0 % 13:36</td><td> [facility] Blood by Lymphocytes Health Care Automated count </td><td><etta Corporat ion raph styleCode="Bold "> 12.4 L </paragraph>
(16.0-50.0) % </td> Monocytes/Leukoc 10.9 % 0.0-11 <td> 08/12/2019 [facility] ytes [Pure .0 % 13:36</td><td> County number fraction] Monocytes. Health Care in Blood by </td><td> Corporation Automated count 10.9
(0.0-11.0) % </td> Platelets 133 k/mm3 160-41 <td> 08/24/2019 [facility] [#/volume] in 0 05:33</td><td> [facility] Blood by k/mm3 Platelet Count Health Care Automated count </td><td><[employer] Corporat ion raph styleCode="Bold "> 133 L </paragraph>
(160-410) k/mm3 </td> Immature 0.4 % 0.0-0. <td> 08/12/2019 [facility] granulocytes/100 5 % 13:36</td><td> [facility] leukocytes in IG% </td><td> [facility] Blood by Actionality Automated count 0.4
(0.0-0.5) %
The IG fraction represents metamyelocytes, myelocytes and/or
promyelocytes and is only reported as part of the automated
differential when found at a percentage of less than 6.
If higher than 6%, a manual differential will be performed.

(0.0-0.5) % </td> Basophils 1.0 % 0.0-2. <td> 08/12/2019 [facility] [#/volume] in 0 % 13:36</td><td> [facility] Blood by [place] [facility] Automated count </td><td> Actionality 1.0
(0.0-2.0) % </td> Neutrophils [#] 75.3 % 34.0-7 <td> 08/12/2019 [facility] in Body fluid by 6.0 % 13:36</td><td> [facility] Manual count Neutrophils [facility] Care </td><td> Actionality 75.3
(34.0-76.0) % </td> Glucose 110 mg/dL 70-105 <td> 08/24/2019 [facility] [Mass/volume] in mg/dL 05:33</td><td> [facility] Blood Glucose-Serum [facility] Care </td><td><[employer] raph styleCode="Bold "> 110 H </paragraph>
(70-105) mg/dL </td> Sodium 134 mEq/L 135-14 <td> 08/24/2019 [facility] [Moles/volume] 5 05:33</td><td> [facility] in Serum or mEq/L Sodium-Serum Health Care Plasma </td><td><[employer] raph styleCode="Bold "> 134 L </paragraph>
(135-145) mEq/L </td> Carbon dioxide, 23 mEq/L 22-30 <td> 08/24/2019 [facility] total mEq/L 05:33</td><td> County [Moles/volume] CO2 </td><td> Health Car e in Serum or Corporation Plasma 23
(22-30) mEq/L </td> Potassium 4.2 mEq/L 3.5-5. <td> 08/24/2019 [facility] [Moles/volume] 1 05:33</td><td> County in Serum or mEq/L Potassium-Serum Health Care Plasma </td><td> Corporation 4.2
(3.5-5.1) mEq/L </td> Chloride 103 mEq/L 98-107 <td> 08/24/2019 [facility] [Moles/volume] mEq/L 05:33</td><td> County in Serum or Chloride Health Care Plasma </td><td> Actionality 103
(98-107) mEq/L </td> Aspartate 83 U/L 4-35 <td> 08/24/2019 [facility] aminotransferase U/L 05:33</td><td> [facility] [Enzymatic AST (SGOT) Health Care activity/volume] </td><td><[employer] Corpora tion in Serum or raph Plasma styleCode="Bold "> 83 H </paragraph>
(4-35) U/L </td> Urea nitrogen 16 mg/dL 6-22 <td> 08/24/2019 [facility] r [Mass/volume] in mg/dL 05:33</td><td> [facility] Blood BUN </td><td> Health Care Corporation 16
(6-22) mg/dL </td> Creatinine 0.67 0.72-1 <td> 08/24/2019 [facility] [Moles/volume] mg/dL .25 05:33</td><td> County in Serum or mg/dL Creatinine. Health Care Plasma </td><td><[employer] raph styleCode="Bold "> 0.67 L </paragraph>
(0.72-1.25) mg/dL </td> Alanine 88 U/L 6-55 <td> 08/24/2019 [facility] aminotransferase U/L 05:33</td><td> [facility] [Enzymatic ALT (SGPT) Health Care activity/volume] </td><td><[facility] [employer] tion in Serum or raph Plasma styleCode="Bold "> 88 H </paragraph>
(6-55) U/L </td> Albumin 3.6 g/dL 3.4-4. <td> 08/24/2019 [facility] [Mass/volume] in 8 g/dL 05:33</td><td> [facility] Serum or Plasma Albumin Health Care </td><td> Actionality 3.6
(3.4-4.8) g/dL </td> Proteins - Total 6.6 g/dL 6.4-8. <td> 08/24/2019 [facility] ster 3 g/dL 05:33</td><td> [facility] Proteins - Health [facility] Total Actionality </td><td> 6.6
(6.4-8.3) g/dL </td> Bilirubin.total 1.5 mg/dL 0.2-1. <td> 08/24/2019 [facility] [Mass/volume] in 3 05:33</td><td> [facility] Blood mg/dL Bilirubin - Health Care Total Actionality </td><td><[facility] styleCode="Bold "> 1.5 H </paragraph>
(0.2-1.3) mg/dL </td> Hemolysis index Slightly <td> 08/24/2019 [facility] of Serum or 05:33</td><td> [facility] Plasma Hemolysis Index Health Care </td><td> Actionality Slightly
</td> Calcium 8.6 mg/dL 8.6-10 <td> 08/24/2019 [facility] [Mass/volume] in .2 05:33</td><td> [facility] Blood mg/dL Calcium Health Care </td><td> Actionality 8.6
(8.6-10.2) mg/dL </td> Anion gap in 8 mEq/L 7-13 <td> 08/24/2019 [facility] Serum or Plasma mEq/L 05:33</td><td> [facility] Anion Gap [facility] Care </td><td> [facility] 8
(7-13) mEq/L </td> Globulin 3.0 gm/dL 2.9-4. <td> 08/24/2019 [facility] [Mass/volume] in 0 05:33</td><td> [facility] [facility] Serum gm/dL Globulin Health Care </td><td> [facility] 3.0
(2.9-4.0) gm/dL </td> Icteric index of Non <td> 08/24/2019 [place] Serum or Plasma Icteric 05:33</td><td> [facility] Icteric Index Health Care </td><td> [facility] Non Icteric
</td> Prothrombin time 13.9 secs 9.8-12 <td> 08/24/2019 Lacie soto (PT) .0 05:33</td><td> [facility] secs Prothrombin Health Care Time. [facility] </td><td><etta raph styleCode="Bold "> 13.9 H </paragraph>
(9.8-12.0) secs </td> Phosphate 3.8 mg/dL 2.3-4. <td> 08/19/2019 Tripp [Mass/volume] in 7 06:50</td><td> [facility] Serum or Plasma mg/dL Inorganic Health Care Phosphorus [facility] </td><td> 3.8
(2.3-4.7) mg/dL </td> Lipemic index of No <td> 08/24/2019 [place] Serum or Plasma Lipemia 05:33</td><td> [facility] Lipemia Index Health Care </td><td> [facility] No Lipemia
</td> aPTT panel - 28.7 secs 25.0-3 <td> 08/24/2019 Tripp Platelet poor 2.0 05:33</td><td> [facility] plasma secs Partial Health Care Thromboplastin [facility] Time </td><td> 28.7
(25.0-32.0) secs </td> Magnesium 2.0 mg/dL 1.6-2. <td> 08/19/2019 Tripp [Mass/volume] in 6 06:50</td><td> [facility] Serum or Plasma mg/dL Magnesium Level Health C are </td><td> Corporation 2.0
(1.6-2.6) mg/dL </td> ID Date Data Source [id number] 08/13/2019 11:02:00 AM EST [facility] [place] [id number] [facility] Name Value Range Interpretation Description Data Sup porting Code Source(s) Document(s ) Abdomen (PACSIMAGE <td> 08/13/2019 [facility] 11:02</td><td> [facility] ) Abdomen [facility] Final Result Actionality Name: </td><td><tomasz Austin MRN: styleCode="Ital [id number] Sex: ics">(PACSIMAGE M : 1970 Location: )</paragraph><b Admitting r/>
Physician: Final Result AIRAM PAIGE Requesting

Physician: Name: LALO GREENBERG Exam: US
ABDOMEN LIMITED Sex: M 08/13/2019
11:30 : 1970 CLINICAL Location: STATEMENT:
Evaluate Admitting spleen. Physician: TECHNIQUE: AIRAM PAIGE Limited
ultrasound of Requesting the abdomen Physician: was performed LALO SILVERMAN utilizing grayscale and

color Doppler Exam: US supplementati ABDOMEN LIMITED on. 08/13/2019 COMPARISON: 11:30 Ultrasound

<br/ abdomen dated > CLINICAL 08/12/2019. STATEMENT: FINDINGS: Evaluate The spleen. spleen

measures 17.0 TECHNIQUE: cm in Limited longitudinal ultrasound of dimension and the abdomen was is normal performed echotexture. utilizing The
surrounding grayscale and splenic color Doppler vasculature supplementation appears . color Doppler

patent. COMPARISON: IMPRESSION: Ultrasound abdomen dated Splenomegaly. 08/12/2019. Resident

Radiologist: FINDINGS: Cassandra Hogan

Resident The spleen Radiologist measures 17.0 Attending cm in Radiologist: longitudinal Paul Preciado dimension and MD is Finalizing
Radiologist: normal Paul Preciado echotexture. MD The surrounding Transcribed splenic Date: vasculature 08/13/2019 appears 11:54
Finalized color Doppler Date: patent. 08/13/2019

12:07 IMPRESSION:

Splenomegaly.

Resident Radiologist: Cassandra Hogan MD Resident Radiologist
Attending Radiologist: Paul Preciado MD
Finalizing Radiologist: Paul Preciado MD
Transcribed Date: 08/13/2019 11:54
Finalized Date: 08/13/2019 12:07

</td > Lumbosacral (PACSIMAGE <td> 08/12/2019 [facility] Spine 2 13:29</td><td> [facility] ) Lumbosacral Health Care Final Result Spine 2 Views Corporation Name: </td><td><tomasz Austin MRN: styleCode="Ital [id number] Sex: ics">(PACSIMAGE M : 1970 Location: )</paragraph><b Admitting r/>
Physician: Final Result EMERGENCY SERVICE

Requesting Name: DIONICIO Physician: LAUREN PADILLA
Exam: LS SPINE 2 VIEWS Sex: M 08/12/2019
13:53 : 1970 CLINICAL Location: M INDICATION:
BACK PAIN Admitting COMPARISON: Physician: None. EMERGENCY TECHNIQUE: SERVICE Frontal and
lateral views Requesting of the lumbar Physician: spine were VANESA PADILLA performed.

INTERPRETATIO Exam: LS SPINE N: Vertebral 2 VIEWS body heights, 08/12/2019 alignment, 13:53 and disc

<br/ spaces are > CLINICAL maintained. INDICATION: There is mild BACK PAIN lower lumbar

spine facet COMPARISON: arthropathy. None. The

sacroiliac TECHNIQUE: joints are Frontal and patent. Ovoid lateral views calcification of the lumbar is noted in spine were the left
upper performed. quadrant. IMPRESSION:

Mild lower INTERPRETATION: lumbar spine Vertebral body facet heights, arthropathy. alignment, and disc spaces Resident
Radiologist: are Attending maintained. Radiologist: There is mild Tori lower lumbar Mckinley HUSAIN spine facet Finalizing arthropathy. Radiologist:
Chalino HUSAIN sacroiliac Transcribed joints are Date: patent. Ovoid 08/12/2019 calcification 14:14 is noted Finalized
Date: in the left 08/12/2019 upper quadrant. 14:16

IMPRESSION: Mild lower lumbar spine facet arthropathy.

Resident Radiologist:
Attending Radiologist: Tori Sen MD
Finalizing Radiologist: Tori Sen MD
Transcribed Date: 08/12/2019 14:14
Finalized Date: 08/12/2019 14:16

</td > Humerus AP & (PACSIMAGE <td> 08/12/2019 [facility] r Lateral Rt 13:29</td><td> [facility] Humerus AP & Health Care Final Result Lateral Rt Corporation Name: </td><td><tomasz Austin MRN: styleCode="Ital [id number] Sex: ics">(PACSIMAGE M : 1970 Location: M )</paragraph><b Admitting r/>
Physician: Final Result EMERGENCY SERVICE

Requesting Name: DIONICIO Physician: LAUREN PADILLA
Exam: HUMERUS RIGHT Sex: M 08/12/2019
14:05 : 1970 CLINICAL Location: M INDICATION:
INJURY Admitting COMPARISON: Physician: None. EMERGENCY TECHNIQUE: SERVICE Frontal and
lateral views Requesting of the right Physician: humerus were VANESA PADILLA performed.

INTERPRETATIO Exam: HUMERUS N: There is RIGHT no fracture 08/12/2019 or 14:05 dislocation.

<br/ There is > CLINICAL degenerative INDICATION: fibrocystic INJURY changes

humeral head. COMPARISON: There is mild None. AC DJD.

There is TECHNIQUE: mineralizatio Frontal and n along the lateral views medial of the right humeral humerus were epicondyle
suggesting performed. chronic medial

epicondylitis INTERPRETATION: . There is no IMPRESSION: fracture or Shoulder DJD. dislocation. Findings There is suggest
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 head. There is mild Resident
AC Radiologist: DJD. There is Attending mineralization Radiologist: along the Tori Sen MD epicondyle Finalizing
Radiologist: suggesting Tori Sen MD epicondylitis. Transcribed Date:

08/12/2019 IMPRESSION: 14:28 Shoulder DJD. Finalized Findings Date: suggest chronic 08/12/2019 medial 14:29 epicondylitis..

Resident Radiologist:
Attending Radiologist: Tori Sen MD
Finalizing Radiologist: Tori Sen MD
Transcribed Date: 08/12/2019 14:28
Finalized Date: 08/12/2019 14:29

</td > Abdomen/Pelv (PACSIMAGE <td> 08/13/2019 [facility] r is W/Out 17:57</td><td> [facility] Contrast-CT ) Abdomen/Pelvis Health Care Final Result W/Out Corporation Name: Contrast-CT DIONICIO </td><td>Amyetta LAUREN MRN: raph [id number] Sex: styleCode="Ital M : ics">(PACSIMAGE 1970 Location: M Admitting )</paragraph><b Physician: r/>
RENATE ISLAS Final Result Requesting Physician:

LALO SILVERMAN Name: DIONICIO, Exam: CT LAUREN ABDOMEN/PELVI
S C- 08/13/2019 Sex: M 21:20
INDICATION: : 1970 Rule out Location: M cirrhosis.
Alcohol Admitting withdrawal. Physician: TECHNIQUE: RENATE ISLAS Noncontrast
CT of the Requesting abdomen was Physician: performed. LALO SILVERMAN Oral contrast was

not Exam: CT administered. ABDOMEN/PELVIS C- 08/13/2019 COMPARISON: 21:20 None..

<br/ FINDINGS: > Evaluation of INDICATION: the abdominal Rule out viscera is cirrhosis. limited due Alcohol to lack of withdrawal. intravenous contrast.

LUNG TECHNIQUE: BASES/PLEURA: Noncontrast CT Tiny of the abdomen pneumatocele was performed. in the right Oral lower lobe.
HEART: contrast was Within normal not limits in administered. size. LIVER: Severe

hepatic COMPARISON: steatosis None.. with

nodularity of FINDINGS: the liver
parenchyma Evaluation of and volume the abdominal redistributio viscera is n, compatible limited due to with lack of cirrhosis.
BILIARY intravenous SYSTEM: There contrast. is no

extrahepatic LUNG biliary BASES/PLEURA: ductal Tiny dilatation.. pneumatocele in GALLBLADDER: the right lower There is lobe. cholelithiasi

s. HEART: Within PANCREAS: normal limits Within normal in size. limits.

SPLEEN: There LIVER: is moderate Severe hepatic splenomegaly. steatosis with ADRENALS: nodularity of Within normal the liver limits.
KIDNEYS/: parenchyma and Unremarkable volume unenhanced redistribution, appearance. compatible with IMAGED cirrhosis. BOWEL/MESENTE RY: The

visualized BILIARY SYSTEM: bowel is There is no normal in extrahepatic caliber. biliary ductal dilatation.. PERITONEUM/RE
TROPERITONEUM GALLBLADDER: : No ascites There is or free air. cholelithiasis. LYMPH NODES: No abdominal

lymphadenopat PANCREAS: hy. Within normal VESSELS: limits. Large
paraumbilical SPLEEN: There vein. Right is moderate upper splenomegaly. quadrant and
periumbilical ADRENALS: varices. Within normal BONES: Mild limits. degenerative

changes of KIDNEYS/: the spine. Unremarkable Vague unenhanced nonspecific appearance. sclerotic focus in L1.

SOFT IMAGED TISSUES: BOWEL/MESENTERY Small : The umbilical and visualized supraumbilica bowel is normal l hernias in caliber. containing varices.

Nodularity in the bilateral PERITONEUM/RETR paraspinal OPERITONEUM: No soft tissues ascites or free may reflect air. hematomas/seq
LYMPH uela of NODES: No trauma. abdominal IMPRESSION: lymphadenopathy 1. Cirrhosis . and hepatic
steatosis. VESSELS: Large Portal paraumbilical hypertension. vein. Right 2. IV upper quadrant contrast was and not periumbilical administered
as the varices. patient's IV was not

working. BONES: Mild Post-contrast degenerative images will changes of the be obtained spine. Vague separately. nonspecific 3.
Cholelithiasi sclerotic s. 4. focus in L1. Nonspecific
sclerotic SOFT TISSUES: focus in L1. Small umbilical If there is and pain supraumbilical referable hernias to this containing region, bone
scan can be varices. obtained for Nodularity in further the bilateral evaluation.. paraspinal soft tissues Resident
Radiologist: may reflect Attending hematomas/seque Radiologist: la of trauma. Becky Higginbotham MD

Finalizing IMPRESSION: Radiologist:
Becky 1. Cirrhosis Anahy HUSAIN and hepatic Transcribed steatosis. Date: Portal 08/13/2019 hypertension. 22:03
Finalized 2. IV Date: contrast was 08/13/2019 not 22:10 administered as the patient's IV was not
working. Post-contrast images will be obtained separately.
3. Cholelithiasis.
4. Nonspecific sclerotic focus in L1. If there is pain referable
to this region, bone scan can be obtained for further evaluation..

Resident Radiologist:
Attending Radiologist: Becky Higginbotham MD
Finalizing Radiologist: Becky Higginbotham MD
Transcribed Date: 08/13/2019 22:03
Finalized Date: 08/13/2019 22:10

</td > Head Without (PACSIMAGE <td> 08/20/2019 [facility] r Contrast-CT 17:49</td><td> [facility] Head Without Health Care Final Result Contrast-CT Corporation Name: </td><td><etta GREENBERG tomasz AGUILAR MRN: styleCode="Ital [id number] Sex: ics">(PACSIMAGE M : 1970 Location: )</paragraph><b Admitting r/>
Physician: Final Result BRODY MONTES Requesting

Physician: Name: DIONICIO, Exam: HEIDY LAUREN HEAD C-
08/20/2019 17:55 Sex: M CLINICAL
HISTORY: : 1970 Submitted Location: clinical
information: Admitting Alcohol Physician: JYOTI Cummings evaluate for
brain lesion. Requesting Physician: COMPARISON: CT head

without Exam: CT HEAD contrast 7 C- 08/20/2019 6019. 17:55 TECHNIQUE:

<br/ Noncontrast > CLINICAL CT scan of HISTORY: the head is Submitted performed clinical from the information: base of the Alcohol skull to the withdrawal, vertex
utilizing evaluate for axial image brain lesion. acquisition. Multiplanar

reformatted COMPARISON: CT images are head without provided. contrast 7 Up-to-date 6019. CT equipment

using TECHNIQUE: Automatic Noncontrast CT Exposure scan of the Control, dose head is modulation, performed from and iterative
reconstructio the base of n dose the skull to reduction the vertex software utilizing axial was employed. image The total acquisition. study DLP is
approximately Multiplanar 941 mGy-cm. reformatted images are FINDINGS: provided. There is no

evidence of Up-to-date acute CT equipment intracranial using Automatic hemorrhage, Exposure mass effect Control, dose or shift of
the midline modulation, structures. and iterative No evidence reconstruction of dose reduction hydrocephalus software . The
visualized was employed. paranasal
sinuses are The total well-aerated. study DLP is The mastoid approximately air cells are 941 mGy-cm. well-aerated. The

visualized FINDINGS: orbits are unremarkable.

There is no There is no depressed evidence of calvarial acute fracture. intracranial IMPRESSION: hemorrhage, No CT mass effect evidence of
acute or shift of intracranial the midline hemorrhage, structures. No focal mass evidence of effect, or hydrocephalus. hydrocephalus
. The visualized Resident paranasal Radiologist: sinuses are Attending well-aerated. Radiologist: The mastoid Jeannie Smith MD
Finalizing air cells are Radiologist: well-aerated. Jeannie Smith MD The visualized Transcribed orbits are Date: unremarkable. 08/20/2019
18:06 There is no Finalized depressed Date: calvarial 08/20/2019 fracture. 18:08

IMPRESSION:

No CT evidence of acute intracranial hemorrhage, focal mass effect,
or hydrocephalus.

Resident Radiologist:
Attending Radiologist: Jeannie Smith MD
Finalizing Radiologist: Jeannie Smith MD
Transcribed Date: 08/20/2019 18:06
Finalized Date: 08/20/2019 18:08

</td > ID Date Data Source [id number] 08/12/2019 01:36:00 PM EST [facility] [place] [id number] Corporation Name Value Range Interpretation Description Data Source(s ) Supporting Code Document(s ) ABO-Rh Type O POS <td> Tripp 08/12/2019 [facility] 13:36</td><td> Care ABO-Rh Type Corporation </td><td> O POS
</td> Specimen 08/15/20 <td> Tripp expiration 19 23:59 08/12/2019 [facility] date of Blood 13:36</td><td> Care Specimen Corporation Expiration Date </td><td> 08/15/2019 23:59
</td> Antibody NEG <td> Tripp Screen 08/12/2019 [facility] 13:36</td><td> Care Antibody Corporation Screen </td><td> NEG
</td> Procedure Social History Code Duration Value Status Description Data Source(s ) Smoking 12/15/2019 Denies Ever completed Denies Ever Smoked [facility] 01:22:00 AM EDT [facility] enter Smoking 12/14/2019 Denies Ever completed Denies Ever Smoked [facility] 10:20:00 PM EDT [facility] enter Smoking 12/14/2019 Denies Ever completed Denies Ever Smoked [facility] 10:14:00 PM EDT [facility] enter Vital Signs ID Date Data Source UNK Name Value Range Interpretation Code Description Data Source(s) Diastolic blood 91 {} Normal (applies to 91 {} [place] pressure non-numeric results) [facility] Systolic blood 125 {} Normal (applies to 125 {} [place] pressure non-numeric results) [facility] First Respiration 18.0000 {} Normal (applies to 18.0000 {} Tripp rate Set non-numeric results) [facility] Heart rate 72.0000 {} Normal (applies to 72.0000 {} [place] non-numeric results) [facility] on Body temperature 96.9000 {} Normal (applies to 96.9000 {} Tripp non-numeric results) [facility] on wt - obtain Normal (applies to {} [facility] non-numeric results) [facility] on weight - kg 100.0000 {} Normal (applies to 100.0000 {} [place] non-numeric results) [facility] on Respiratory rate 20 /min 20 /min [facility] Heart rate 60 /min 60 /min [facility] Diastolic blood 85 mm[Hg] 85 mm[Hg] [facility] Systolic blood 130 mm[Hg] 130 mm[Hg] [facility] Body temperature 36.14377 36.63367 [facility] Body temperature 97.8 [degF] 97.8 [degF] [facility] Body mass index 28.0 kg/m2 28.0 kg/m2 [facility] (BMI) [Ratio] Hospital Body weight 190.39 190.39 [lb_av] [facility] [lb_[facility] Diastolic blood 81 {} Normal (applies to 81 {} [place] pressure non-numeric results) [facility] Systolic blood 121 {} Normal (applies to 121 {} [place] pressure non-numeric results) [facility] on First Respiration 19.0000 {} Normal (applies to 19.0000 {} Tripp rate Set non-numeric results) [facility] on Heart rate 66.0000 {} Normal (applies to 66.0000 {} [place] [facility] non-numeric results) [facility] on Body temperature 98.4000 {} Normal (applies to 98.4000 {} Tripp non-numeric results) [facility] on wt - obtain Normal (applies to {} [facility] non-numeric results) [facility] on weight - kg 109.0900 {} Normal (applies to 109.0900 {} [place] non-numeric results) [facility] on Diastolic blood 94 {} Normal (applies to 94 {} [place] pressure non-numeric results) [facility] on Systolic blood 144 {} Normal (applies to 144 {} [place] pressure non-numeric results) [facility] on First Respiration 18.0000 {} Normal (applies to 18.0000 {} Tripp rate Set non-numeric results) [facility] on Heart rate 95.0000 {} Normal (applies to 95.0000 {} [place] non-numeric results) [facility] on Body temperature 99.2000 {} Normal (applies to 99.2000 {} Tripp non-numeric results) [facility] on wt - obtain Normal (applies to {} [facility] non-numeric results) [facility] on weight - kg 111.3630 {} Normal (applies to 111.3630 {} [place] non-numeric results) [facility] on wt - obtain Normal (applies to {} [facility] [place] non-numeric results) [facility] weight - kg 108.0000 {} Normal (applies to 108.0000 {} [place] non-numeric results) [facility] on Diastolic blood 100 {} Normal (applies to 100 {} [place] pressure non-numeric results) [facility] on Systolic blood 153 {} Normal (applies to 153 {} [place] pressure non-numeric results) [facility] on First Respiration 18.0000 {} Normal (applies to 18.0000 {} Tripp rate Set non-numeric results) [facility] Heart rate 86.0000 {} Normal (applies to 86.0000 {} [place] [facility] non-numeric results) [facility] on Body temperature 99.8000 {} Normal (applies to 99.8000 {} Tripp non-numeric results) [facility] on Body temperature 36.635400 36.968972 [facility] Respiratory rate 17 /min 17 /min [facility] Oxygen saturation 98 % 98 % [facility] Arterial blood [facility] by Pulse oximetry Heart rate 84 /min 84 /min [facility] Diastolic blood 69 mm[Hg] 69 mm[Hg] [facility] pressure [facility] Systolic blood 127 mm[Hg] 127 mm[Hg] [facility] Body temperature 37.773424 37.218950 [facility] Respiratory rate 17 /min 17 /min [facility] Oxygen saturation 97 % 97 % [facility] Arterial blood [facility] by Pulse oximetry Heart rate 89 /min 89 /min [facility] Diastolic blood 70 mm[Hg] 70 mm[Hg] [facility] Systolic blood 122 mm[Hg] 122 mm[Hg] [facility] Body temperature 37.303685 37.690201 [facility] Respiratory rate 18 /min 18 /min [facility] Oxygen saturation 97 % 97 % [facility] Ar[facility] by Pulse oximetry Heart rate 94 /min 94 /min [facility] Diastolic blood 110 mm[Hg] 110 mm[Hg] [facility] Systolic blood 168 mm[Hg] 168 mm[Hg] [facility] Body temperature 36.304490 36.079937 [facility] Respiratory rate 17 /min 17 /min [facility] Oxygen saturation 98 % 98 % [facility] Arterial blood [facility] by Pulse oximetry Heart rate 103 /min 103 /min [facility] Diastolic blood 118 mm[Hg] 118 mm[Hg] [facility] Systolic blood 203 mm[Hg] 203 mm[Hg] [facility] wt - obtain Normal (applies to {} [facility] non-numeric results) [facility] weight - kg 87.2000 {} Normal (applies to 87.2000 {} [facility] non-numeric results) [facility] Diastolic blood 99 {} Normal (applies to 99 {} [place] pressure non-numeric results) [facility] on Systolic blood 149 {} Normal (applies to 149 {} [place] pressure non-numeric results) [facility] on First Respiration 17.0000 {} Normal (applies to 17.0000 {} Tripp rate Set non-numeric results) [facility] Heart rate 65.0000 {} Normal (applies to 65.0000 {} [facility] non-numeric results) [facility] on Body temperature 97.1000 {} Normal (applies to 97.1000 {} Tripp non-numeric results) [facility] on height - cm Normal (applies to {} [facility] non-numeric results) [facility] on Diastolic blood 92 {} Normal (applies to 92 {} [place] pressure non-numeric results) [facility] on Systolic blood 148 {} Normal (applies to 148 {} [place] pressure non-numeric results) [facility] on First Respiration 18.0000 {} Normal (applies to 18.0000 {} Tripp rate Set non-numeric results) [facility] Heart rate 74.0000 {} Normal (applies to 74.0000 {} [place] non-numeric results) [facility] on Body temperature 97.0000 {} Normal (applies to 97.0000 {} Tripp non-numeric results) [facility] on wt - obtain Normal (applies to {} [facility] non-numeric results) [facility] weight - kg 104.7500 {} Normal (applies to 104.7500 {} [place] non-numeric results) [facility] on Diastolic blood 87 {} Normal (applies to 87 {} [place] pressure non-numeric results) [facility] on Systolic blood 121 {} Normal (applies to 121 {} [place] pressure non-numeric results) [facility] on First Respiration 17.0000 {} Normal (applies to 17.0000 {} Tripp rate Set non-numeric results) [facility] Heart rate 62.0000 {} Normal (applies to 62.0000 {} [facility] [facility] non-numeric results) [facility] on Body temperature 97.4000 {} Normal (applies to 97.4000 {} Tripp non-numeric results) [facility] on Diastolic blood 106 {} Normal (applies to 106 {} [place] pressure non-numeric results) [facility] on Systolic blood 155 {} Normal (applies to 155 {} [place] pressure non-numeric results) [facility] on First Respiration 16.0000 {} Normal (applies to 16.0000 {} Tripp rate Set non-numeric results) [facility] on Heart rate 96.0000 {} Normal (applies to 96.0000 {} [place] non-numeric results) [facility] on Body temperature 98.5000 {} Normal (applies to 98.5000 {} Tripp non-numeric results) [facility] on wt - obtain Normal (applies to {} [facility] non-numeric results) [facility] on weight - kg 109.5000 {} Normal (applies to 109.5000 {} [facility] [place] non-numeric results) Coun ty [facility] on Patient Treatment Plan of Care Planned Activity Planned Date Details Description Data Source (s) Metoprolol (Lopresso 04/18/2020 09:08:07 [facility] Thiamine 100 mg / ml 04/18/2020 08:03:39 [facility] Folic Acid Tablet Or 04/18/2020 08:03:17 [facility] Magnesium Sulfate (2 04/18[facility] 0.9% NaCl IV 04/18/2020 08:02:40 [facility] Libriium (Chlordiaze 04/18/2020 08:01:51 [facility] Ativan (Lorazepam) I 04/18/2020 07:19:22 [facility] Protronix (Pantopraz 04/18/2020 07:17:51 [facility] Pantoprazole (Proton 04/18/2020 07:17:17 [facility] Ativan (Lorazepam) I 04/18/2020 07:02:44 [facility] Libriium (Chlordiaze 03/28/2020 06:25:00 [facility] Ativan (Lorazepam) I 03/28/2020 04:17:22 [facility] 0.9% NaCl IV 03/28/2020 01:40:20 [facility] Zofran 4mg/2mL (Onda 03/28/2020 01:40:20 [facility] Toradol 30 mg/mL (Ke 03/28/2020 01:40:20 [facility] Potassium Chloride P 01/04/2020 01:17:06 [facility] Thiamine 100 mg / ml 01/04/2020 01:16:20 [facility] 0.9% NaCl IV 01/04/2020 10:38:50 [facility] 0.9% NaCl IV 01/04/2020 09:00:24 [facility] Ativan (Lorazepam) I 01/04/2020 08:47:33 [facility] Libriium (Chlordiaze 01/04/2020 08:39:14 [facility] Lidocaine 1% w/Epi 1 12/24/2019 05:37:38 [facility] Ativan (Lorazepam) I 12/16/2019 09:23:21 [facility] Ativan (Lorazepam) I 12/16/2019 09:23:21 [facility] Motrin (Ibuprofen) O 12/16/2019 09:22:51 [facility] Motrin (Ibuprofen) O 12/16/2019 09:22:51 [facility] Folic Acid Tablet Or 12/16/2019 09:22:41 [facility] Folic Acid Tablet Or 12/16/2019 09:22:41 [facility] Thiamine 100 mg / ml 12/16/2019 09:21:55 [facility] Thiamine 100 mg / ml 12/16/2019 09:21:55 [facility] Metoprolol (Lopresso 12/16/2019 09:20:52 [facility] Metoprolol (Lopresso 12/16/2019 09:20:52 [facility] Ativan (Lorazepam) I 12/16/2019 02:42:04 [facility] Ativan (Lorazepam) I 12/16/2019 02:42:04 [facility] AM EDT [facility] Libriium (Chlordiaze 12/16/2019 02:26:31 [facility] AM [facility]T [facility] Libriium (Chlordiaze 12/16/2019 02:26:31 [facility] AM EDT [facility] Libriium (Chlordiaze 12/15/2019 09:23:15 [facility] PM EDT [facility] Libriium (Chlordiaze 12/15/2019 09:23:15 [facility] PM [facility] Ativan (Lorazepam) I 12/15/2019 09:09:59 [facility] PM [facility] Ativan (Lorazepam) I 12/15/2019 09:09:59 [facility] PM [facility] 0.9% NaCl IV 12/15/2019 09:09:37 [facility] PM [facility] 0.9% NaCl IV 12/15/2019 09:09:37 [facility] PM [facility] Potassium Chloride O 12/15/2019 04:59:38 [facility] PM [facility] Potassium Chloride O 12/15/2019 04:59:38 [facility] PM [facility] Metoprolol (Lopresso 12/15/2019 04:52:23 [facility] PM [facility] Metoprolol (Lopresso 12/15/2019 04:52:23 [facility] PM [facility] 0.9% NaCl IV 12/15/2019 03:43:25 [facility] PM [facility] 0.9% NaCl IV 12/15/2019 03:43:25 [facility] PM [facility] Libriium (Chlordiaze 10/30/2019 06:44:05 [facility] AM EST [facility] 0.9% NaCl IV 10/30/2019 06:44:00 [facility] AM EST [facility] Ativan (Lorazepam) I 10/30/2019 06:35:02 [facility] AM EST [facility] Protronix (Pantopraz 10/30/2019 06:34:42 [facility] AM EST [facility] Thiamine 100 mg / ml 10/13/2019 05:51:30 [facility] PM EST [facility] Thiamine 100 mg / ml 10/13/2019 05:51:30 [facility] EST [facility] Folic Acid 1 mg/0.2 10/13/2019 05:51:20 [facility] EST [facility] Folic Acid 1 mg/0.2 10/13/2019 05:51:20 [facility] EST [facility] Ativan (Lorazepam) I 10/13/2019 04:47:06 [facility] EST [facility] Ativan (Lorazepam) I 10/13/2019 04:47:06 [facility] EST [facility] 0.9% NaCl IV 10/13/2019 04:46:46 [facility] EST [facility] 0.9% NaCl IV 10/13/2019 04:46:46 [facility] EST [facility] 0.9% NaCl IV 08/12/2019 04:53:15 [facility] EST [facility] Ativan (Lorazepam) I 08/12/2019 04:43:13 [facility] EST [facility] Folic Acid Tablet Or 08/12/2019 02:29:32 [facility] EST [facility] Ativan (Lorazepam) I 08/12/2019 01:25:54 [facility] EST [facility] Multivitamin-ADULT O 08/12/2019 01:25:44 [facility] EST [facility] Thiamine 100 mg / ml 08/12/2019 01:24:35 [facility] EST [facility] 0.9% NaCl IV 08/12/2019 01:23:47 [facility] EST [facility]
[2020-07-11 06:38] VITALS: BMI 31.2
--- NOTE | 2020-07-11 09:11 | HP ---
CHIEF COMPLAINT: Alcohol withdrawal, hand tremors PCP: None HISTORY OF PRESENT ILLNESS: 50 year-old male with a [facility] signficant for HTN and alcohol abuse. Has been through two detox programs, [facility] January 2019, and [facility] in September 2019. He was sober for a time but resumed drinking in passt few weeks. He drinks 1 bottle of vodka per day, last drink was on 07/09/20. He presented to the ED with LUQ pain, nausea and vomiting x 1 day. He notes severe tremors in his hands. Dry heaveing in the ED. 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, 3 children Smoking: never Alcohol: 1 bottle vodka per day, last drink 07/09 Drugs: no Family history: mother 80s, obesity and alcoholism; father alive in 80s prostate cancer; sister with colon cancer, brother with prostate cancer, 3 children a&w Allergies No Known Allergies Allergy (Unverified 07/10/20 22:43) HOME MEDICATIONS: Home Medications Medication Instructions Recorded Metoprolol Succinate 50 mg PO DAILY 07/10/20 REVIEW OF SYSTEMS CONSTITUTIONAL: +loss of appetite Absent: fever, chills, diaphoresis, generalized weakness, malaise, loss of appetite, weight change HEENT: Absent: rhinorrhea, nasal congestion, throat pain, throat swelling, difficulty swallowing, mouth swelling, ear pain, eye pain, visual changes CARDIOVASCULAR: Absent: chest pain, syncope, palpitations, irregular heart rate, lightheadedness, peripheral edema RESPIRATORY: Absent: cough, shortness of breath, dyspnea with exertion, orthopnea, wheezing, stridor, hemoptysis GASTROINTESTINAL: +nausea, vomiting, diarrhea Absent: abdominal pain, abdominal distension, constipation, melena, hematochezia GENITOURINARY: Absent: dysuria, frequency, urgency, hesitancy, hematuria, flank pain, genital pain MUSCULOSKELETAL: Absent: myalgia, arthralgia, joint swelling, back pain, neck pain SKIN: Absent: rash, itching, pallor HEMATOLOGIC/IMMUNOLOGIC: Absent: easy bleeding, easy bruising, lymphadenopathy, frequent infections ENDOCRINE: Absent: unexplained weight gain, unexplained weight loss, heat intolerance, cold intolerance NEUROLOGIC: +tremors, asterixis Absent: headache, focal weakness or paresthesias, dizziness, unsteady gait, seizure, mental status changes, bladder or bowel incontinence PSYCHIATRIC: Absent: anxiety, depression, suicidal or homicidal ideation, hallucinations. PHYSICAL EXAMINATION Vital Signs - 24 hr 07/10/20 07/11/20 07/11/20 22:35 00:48 03:42 Temperature 99 F Pulse Rate 109 H Pulse Rate [ 84 Left] Respiratory 22 H 16 Rate Blood Pressure 172/114 H Blood Pressure 149/91 152/86 [Left] O2 Sat by Pulse 99 Oximetry (%) 07/11/20 06:24 Temperature 98.5 F Pulse Rate 86 Pulse Rate [ Left] Respiratory 20 Rate Blood Pressure 149/87 Blood Pressure [Left] O2 Sat by Pulse 96 Oximetry (%) GENERAL: Awake, alert, and fully oriented. Tremulousness arms, neck, head, +asterixis, clammy, sweaty, anxious HEAD: Normal with no signs of trauma. EYES: Pupils equal, round and reactive to light, extraocular movements intact, sclera anicteric, conjunctiva clear. No lid lag. LUNGS: Breath sounds equal, clear to auscultation bilaterally. HEART: Regular rate and rhythm, normal S1 and S2 ABDOMEN: Soft, nontender, not distended. MUSCULOSKELETAL: Normal range of motion at all joints. No bony deformities or tenderness. No CVA tenderness. UPPER EXTREMITIES: 2+ pulses, warm, well-perfused. No cyanosis. No clubbing. No peripheral edema. LOWER EXTREMITIES: 2+ pulses, warm, well-perfused. No calf tenderness. No peripheral edema. NEUROLOGICAL: Cranial nerves II-XII intact. Normal speech. Laboratory Results - last 24 hr 07/10/20 07/10/20 07/10/20 00:00 00:00 01:45 WBC RBC Hgb Hct MCV MCH MCHC RDW Plt Count MPV Absolute Neuts (auto) Neutrophils % Lymphocytes % Monocytes % Eosinophils % Basophils % Sodium Potassium Chloride Carbon Dioxide Anion Gap BUN Creatinine Est GFR (CKD-EPI)AfAm Est GFR (CKD-EPI)NonAf Random Glucose Lactic Acid Calcium Total Bilirubin AST ALT Alkaline Phosphatase Troponin I Total Protein Albumin Lipase 303 Beta-Hydroxybutyrate 36.2 H Urine Color Darrow Urine Appearance Cloudy Urine pH 5.5 Ur Specific [place] 1.031 Urine Protein 3+ H Urine Glucose (UA) Negative Urine Ketones 2+ H Urine Blood 3+ H Urine Nitrite Positive H Urine Bilirubin 2+ H Urine Urobilinogen 1.0 Ur Leukocyte Esterase Trace Urine WBC (Auto) 11 Urine RBC (Auto) 30.0 Urine Casts (Auto) 8 U Pathogenic Cast Auto Few U Epithel Cells (Auto) 9 Urine Crystals (Auto) None seen Urine Bacteria (Auto) 11.4 Alcohol, Quantitative 07/10/20 07/10/20 07/10/20 22:48 22:48 22:54 WBC 5.4 RBC 4.92 Hgb 15.9 Hct 46.2 MCV 93.9 MCH 32.3 MCHC 34.4 RDW 15.2 Plt Count 52 L MPV 8.1 Absolute Neuts (auto) 4.0 Neutrophils % 73.2 Lymphocytes % 19.8 Monocytes % 6.3 Eosinophils % 0.1 Basophils % 0.6 Sodium 136 Potassium 3.7 Chloride 92 L Carbon Dioxide 19 L Anion Gap 25 H BUN 14.0 Creatinine 0.7 Est GFR (CKD-EPI)AfAm 125.75 Est GFR (CKD-EPI)NonAf 108.50 Random Glucose 133 H Lactic Acid Calcium 9.4 Total Bilirubin 7.6 H AST 350 H ALT 174 H Alkaline Phosphatase 133 H Troponin I 0.29 H Total Protein 8.5 H Albumin 4.9 Lipase Beta-Hydroxybutyrate Urine Color Urine Appearance Urine pH Ur Specific [place] Urine Protein Urine Glucose (UA) Urine Ketones Urine Blood Urine Nitrite Urine Bilirubin Urine Urobilinogen Ur Leukocyte Esterase Urine WBC (Auto) Urine RBC (Auto) Urine Casts (Auto) U Pathogenic Cast Auto U Epithel Cells (Auto) Urine Crystals (Auto) Urine Bacteria (Auto) Alcohol, Quantitative 43.1 H 07/10/20 07/11/20 07/11/20 23:55 01:55 04:45 WBC RBC Hgb Hct MCV MCH MCHC RDW Plt Count MPV Absolute Neuts (auto) Neutrophils % Lymphocytes % Monocytes % Eosinophils % Basophils % Sodium Potassium Chloride Carbon Dioxide Anion Gap BUN Creatinine Est GFR (CKD-EPI)AfAm Est GFR (CKD-EPI)NonAf Random Glucose Lactic Acid 4.2 H* 2.1 H Calcium Total Bilirubin AST ALT Alkaline Phosphatase Troponin I 0.03 Total Protein Albumin Lipase Beta-Hydroxybutyrate Urine Color Urine Appearance Urine pH Ur Specific [place] Urine Protein Urine Glucose (UA) Urine Ketones Urine Blood Urine Nitrite Urine Bilirubin Urine Urobilinogen Ur Leukocyte Esterase Urine WBC (Auto) Urine RBC (Auto) Urine Casts (Auto) U Pathogenic Cast Auto U Epithel Cells (Auto) Urine Crystals (Auto) Urine Bacteria (Auto) Alcohol, Quantitative 07/11/20 04:45 WBC RBC Hgb Hct MCV MCH MCHC RDW Plt Count MPV Absolute Neuts (auto) Neutrophils % Lymphocytes % Monocytes % Eosinophils % Basophils % Sodium 136 Potassium 3.5 Chloride 100 Carbon Dioxide 29 Anion Gap 6 L BUN 13.4 Creatinine 0.8 Est GFR (CKD-EPI)AfAm 119.04 Est GFR (CKD-EPI)NonAf 102.71 Random Glucose 246 H Lactic Acid Calcium 7.6 L Total Bilirubin 5.9 H AST 236 H ALT 147 H Alkaline Phosphatase 109 Troponin I 0.03 Total Protein 6.1 L Albumin 3.2 L Lipase Beta-Hydroxybutyrate 15.5 H Urine Color Urine Appearance Urine pH Ur Specific [place] Urine Protein Urine Glucose (UA) Urine Ketones Urine Blood Urine Nitrite Urine Bilirubin Urine Urobilinogen Ur Leukocyte Esterase Urine WBC (Auto) Urine RBC (Auto) Urine Casts (Auto) U Pathogenic Cast Auto U Epithel Cells (Auto) Urine Crystals (Auto) Urine Bacteria (Auto) Alcohol, Quantitative ASSESSMENT/PLAN: 50 year-old male with a [facility] signficant for HTN and alcohol abuse. Admitted for acute alcohol withdrawal. Acute alcohol withdrawal Alcoholic ketoacidosis Metabolic encephalopathy --last drink 2 days ago; active signs of withdrawal --elevated beta hydroxybutera and high anion gap 25 on admission --lactic acidosis, improving; repeat at noon --start ativan protocol --continue D5NS@100mL/hr --daily thiamine, folic acid --monitor electrolytes q12h for 48 hours Elevated troponin --initial troponin elevated followed by two negative values; likely demand, no signs of ACS --ECG: no sign of acute ischemic event --continuous cardiac monitoring Hyperbilirubinemia Transaministis --likely from alcohol abuse --US liver ordered --acute hepatitis panel ordered Thrombocytopenia --platelets 52K --no signs of bleeding, monitor closely Hypertension --continue metoprolol FEN Fluids: D5NS@100mL/hr Electrolytes: replete as indicated Nutrition: regular diet DVT prophylaxis: suq lovenox Bed rest Dispo: continues to require inpatient care. Full code. Family Medical History Family History: As Documented Visit type - Emergency Visit Emergency Visit: Yes ED Registration Date: 07/11/20 Care time: The patient presented to the Emergency Department on the above date and was hospitalized for further evaluation of their emergent condition. - New Patient This patient is new to me today: Yes Date on this admission: 07/11/20 - Critical Care Critical Care patient: No
[2020-07-11] MEDS ORDERED: LORazepam 1 MG TABLET PO PRN (09:46)
[2020-07-11] MEDS ORDERED: ENOXAPARIN NA (PORCINE) 40 MG/0.4 ML DISP.SYRIN SQ SCH (10:00)
[2020-07-11] MEDS: FAMOTIDINE 20 MG TABLET PO SCH (10:13)
[2020-07-11] MEDS ORDERED: SODIUM CHLORIDE 1,000 ML IV SCH ×2 (10:30→19:00)
[2020-07-11] MEDS: LORazepam 1 MG TABLET PO SCH ×4 (10:45→22:41)
[2020-07-11] MEDS ORDERED: POTASSIUM CHLORIDE TABS 20 MEQ TABLET.ER (FP) PO ONE (11:00)
[2020-07-11] MEDS ORDERED: DEXTROSE 5%-NORMAL SALINE 1,000 ML IV SCH (11:00)
--- NOTE | 2020-07-11 11:52 | EKG ---
Test Reason : Blood Pressure : / mmHG Vent. Rate : 083 BPM Atrial Rate : 083 BPM P-R Int : 170 ms QRS Dur : 092 ms QT Int : 424 ms P-R-T Axes : 026 040 046 degrees QTc Int : 498 ms NORMAL SINUS RHYTHM PROLONGED QT ABNORMAL ECG WHEN COMPARED WITH ECG OF 10-JUL-2020 22:58, NO SIGNIFICANT CHANGE WAS FOUND Confirmed by ELVER TRUONG MD ([id number]) on 07/11/2020 11:51:48 AM Referred By: RAMÓN LEACH Confirmed By:ELVER TRUONG MD
--- NOTE | 2020-07-11 11:52 | EKG ---
Test Reason : Blood Pressure : / mmHG Vent. Rate : 095 BPM Atrial Rate : 095 BPM P-R Int : 168 ms QRS Dur : 088 ms QT Int : 422 ms P-R-T Axes : 028 046 041 degrees QTc Int : 530 ms NORMAL SINUS RHYTHM PROLONGED QT ABNORMAL ECG NO PREVIOUS ECGS AVAILABLE Confirmed by ELVER TRUONG MD ([id number]) on 07/11/2020 11:51:58 AM Referred By: LAUREN GREENBERG Confirmed By:ELVER TRUONG MD
[2020-07-11 12:09] LABS: INR 1.7 (0.82-1.09); PROTHROMBIN TIME (PATIENT) 18.8 SEC (10.2-13.0)
[2020-07-11 12:13] LABS: MAGNESIUM 1.3 mg/dL (1.8-2.4); PHOSPHOROUS 1.8 mg/dl (2.5-4.9)
[2020-07-11] MEDS ORDERED: MAGNESIUM SULF 50% (8.12 MEQ/2 ML-1 GM VIAL) IVPB ONE (12:39)
[2020-07-11] MEDS ORDERED: MAGNESIUM SULFATE IN WATER 2 GM/50 ML IVPB IVPB ONE (13:00)
[2020-07-11] MEDS: NAPH,MB-DB/K PH,MBDB POWDER PACKET PO SCH ×2 (14:25→20:10)
[2020-07-11 18:21] LABS: BASO % 0.6 % (0-2.0); EOS % 2.4 % (0-4.5); HEMATOCRIT 40.2 % (35.4-49); HEMOGLOBIN 13.4 GM/dl (11.7-16.9); LYMPH % 29.4 % (8-40); MCH 31.4 pg (25.7-33.7); MCHC 33.2 g/dl (32.0-35.9); MEAN CELL VOLUME 94.4 fl (80-96); MEAN PLT VOLUME 7.9 fl (7.5-11.1); MONO % 8.5 % (3.8-10.2); NEUT % 59.1 % (42.8-82.8); RBC 4.26 M/mm3 (4.00-5.60); RDW 15.6 % (11.9-15.9); WHITE BLOOD COUNT 3.1 K/mm3 (4.0-10.8)
[2020-07-11 18:26] LABS: INR 1.71 (0.82-1.09); PROTHROMBIN TIME (PATIENT) 18.9 SEC (10.2-13.0)
[2020-07-11 18:35] LABS: ALBUMIN 3.8 g/dl (3.4-5.0); BILIRUBIN,DIRECT 2.7 mg/dL (0.0-0.2); BILIRUBIN,TOTAL 6.9 mg/dl (0.2-1); CALCIUM 8.5 mg/dl (8.5-10); CREATININE 0.7 mg/dl (0.55-1.3); MAGNESIUM 1.8 mg/dL (1.8-2.4); PHOSPHOROUS 1.7 mg/dl (2.5-4.9); POTASSIUM 3.8 mmol/L (3.5-5.1); TOT PROT 6.6 g/dl (6.4-8.2)
[2020-07-11 18:37] LABS: PLATELET COUNT 26 K/MM3 (134-434)
[2020-07-12] MEDS: NAPH,MB-DB/K PH,MBDB POWDER PACKET PO SCH ×3 (01:00→14:17)
[2020-07-12] MEDS: LORazepam 1 MG TABLET PO SCH ×2 (04:02→11:11)
[2020-07-12 08:23] LABS: HEMOGLOBIN 13.7 GM/dl (11.7-16.9); MCH 31.7 pg (25.7-33.7); MCHC 33.4 g/dl (32.0-35.9); MEAN CELL VOLUME 94.9 fl (80-96); MEAN PLT VOLUME 8.9 fl (7.5-11.1); RBC 4.32 M/mm3 (4.00-5.60); RDW 15.6 % (11.9-15.9); WHITE BLOOD COUNT 3.7 K/mm3 (4.0-10.8)
[2020-07-12 08:50] LABS: ALBUMIN 3.6 g/dl (3.4-5.0); BILIRUBIN,DIRECT 2.6 mg/dL (0.0-0.2); CALCIUM 8.4 mg/dl (8.5-10); CREATININE 0.6 mg/dl (0.55-1.3); MAGNESIUM 1.6 mg/dL (1.8-2.4); PHOSPHOROUS 1.9 mg/dl (2.5-4.9); PLATELET COUNT 26 K/MM3 (134-434); POTASSIUM 3.7 mmol/L (3.5-5.1); TOT PROT 6.5 g/dl (6.4-8.2)
[2020-07-12 08:51] LABS: ADD RBC MORPHOLOGY YES
[2020-07-12 08:52] LABS: ACTIVATED PTT 30.7 SECONDS (25.2-36.5)
[2020-07-12 08:57] LABS: INR 1.86 (0.82-1.09); PROTHROMBIN TIME (PATIENT) 20.6 SEC (10.2-13.0)
[2020-07-12] MEDS: FAMOTIDINE 20 MG TABLET PO SCH (09:19)
--- NOTE | 2020-07-12 09:31 | PN ---
Physical Exam: SUBJECTIVE: Patient seen and examined. Feeling less tremulous. Ate dinner and breakfast but had diarrhea afterward. OBJECTIVE: Vital Signs Period Temp Pulse Resp BP Sys/Payne Pulse Ox Last 24 Hr 97.5 F-99 F 69-88 17-22 131-148/80-90 94-100 GENERAL: The patient is awake, alert, and fully oriented; sweaty, voice is tremulous, hand tremors and asterixis resolved; confused when following simple directions from staff about getting out of bed, bathing EYES: icteric sclera LUNGS: CTA HEART: RRR, S1, S2 ABDOMEN: Soft, nontender, nondistended EXTREMITIES: 2+ pulses, warm, well-perfused, no edema. NEUROLOGICAL: Cranial nerves II through XII grossly intact. Normal speech, steady gait Laboratory Results - last 24 hr 07/11/20 07/11/20 07/11/20 00:20 04:45 11:18 WBC RBC Hgb Hct MCV MCH MCHC RDW Plt Count MPV Absolute Neuts (auto) Neutrophils % Lymphocytes % Monocytes % Eosinophils % Basophils % PT with INR 18.8 H INR 1.70 H PTT (Actin FS) Sodium 136 Potassium 3.5 Chloride 100 Carbon Dioxide 29 Anion Gap 6 L BUN 13.4 Creatinine 0.8 Est GFR (CKD-EPI)AfAm 119.04 Est GFR (CKD-EPI)NonAf 102.71 Random Glucose 246 H Lactic Acid Calcium 7.6 L Phosphorus Magnesium Total Bilirubin 5.9 H Direct Bilirubin AST 236 H ALT 147 H Alkaline Phosphatase 109 Troponin I 0.03 Total Protein 6.1 L Albumin 3.2 L Total Amylase Lipase 438 H Beta-Hydroxybutyrate 15.5 H COVID-19 ([facility]ORENE) Not detected Hep A IgM Ab Confirm Hep Bs Antigen Hep B Core IgM Ab Hepatitis C Ab (EIA) Blood Type Antibody Screen 07/11/20 07/11/20 07/11/20 11:18 11:18 11:18 WBC RBC Hgb Hct MCV MCH MCHC RDW Plt Count MPV Absolute Neuts (auto) Neutrophils % Lymphocytes % Monocytes % Eosinophils % Basophils % PT with INR INR PTT (Actin FS) Sodium Potassium Chloride Carbon Dioxide Anion Gap BUN Creatinine Est GFR (CKD-EPI)AfAm Est GFR (CKD-EPI)NonAf Random Glucose Lactic Acid 1.6 Calcium Phosphorus 1.8 L Magnesium 1.3 L Total Bilirubin Direct Bilirubin AST ALT Alkaline Phosphatase Troponin I Total Protein Albumin Total Amylase Lipase 456 H Beta-Hydroxybutyrate COVID-19 ([facility]ENE) Hep A IgM Ab Confirm Hep Bs Antigen Hep B Core IgM Ab Hepatitis C Ab (EIA) Blood Type Antibody Screen 07/11/20 07/11/20 07/11/20 11:18 18:00 18:00 WBC 3.1 L RBC 4.26 Hgb 13.4 Hct 40.2 MCV 94.4 MCH 31.4 MCHC 33.2 RDW 15.6 Plt Count 26 L* D MPV 7.9 Absolute Neuts (auto) 1.8 Neutrophils % 59.1 Lymphocytes % 29.4 D Monocytes % 8.5 Eosinophils % 2.4 D Basophils % 0.6 PT with INR 18.9 H INR 1.71 H PTT (Actin FS) Sodium Potassium Chloride Carbon Dioxide Anion Gap BUN Creatinine Est GFR (CKD-EPI)AfAm Est GFR (CKD-EPI)NonAf Random Glucose Lactic Acid Calcium Phosphorus Magnesium Total Bilirubin Direct Bilirubin AST ALT Alkaline Phosphatase Troponin I Total Protein Albumin Total Amylase Lipase Beta-Hydroxybutyrate COVID-19 ([facility]) Hep A IgM Ab Confirm Negative Hep Bs Antigen Negative Hep B Core IgM Ab Negative Hepatitis C Ab (EIA) <0.1 Blood Type Antibody Screen 07/11/20 07/11/20 07/12/20 18:00 19:30 07:03 WBC 3.7 L RBC 4.32 Hgb 13.7 Hct 41.0 MCV 94.9 MCH 31.7 MCHC 33.4 RDW 15.6 Plt Count 26 L* MPV 8.9 D Absolute Neuts (auto) 2.0 Neutrophils % No Result Required. Lymphocytes % No Result Required. Monocytes % Eosinophils % Basophils % PT with INR INR PTT (Actin FS) Sodium 130 L Potassium 3.8 Chloride 95 L Carbon Dioxide 26 Anion Gap 9 BUN 9.0 Creatinine 0.7 Est GFR (CKD-EPI)AfAm 125.75 Est GFR (CKD-EPI)NonAf 108.50 Random Glucose 167 H Lactic Acid Calcium 8.5 Phosphorus 1.7 L Magnesium 1.8 Total Bilirubin 6.9 H Direct Bilirubin 2.7 H AST 266 H ALT 130 H Alkaline Phosphatase 108 D Troponin I Total Protein 6.6 Albumin 3.8 Total Amylase 95 Lipase Beta-Hydroxybutyrate COVID-19 ([facility]) Hep A IgM Ab Confirm Hep Bs Antigen Hep B Core IgM Ab Hepatitis C Ab (EIA) Blood Type O POSITIVE Antibody Screen Negative 07/12/20 07/12/20 07:03 07:03 WBC RBC Hgb Hct MCV MCH MCHC RDW Plt Count MPV Absolute Neuts (auto) Neutrophils % Lymphocytes % Monocytes % Eosinophils % Basophils % PT with INR 20.6 H INR 1.86 H PTT (Actin FS) 30.7 Sodium 132 L Potassium 3.7 Chloride 99 Carbon Dioxide 24 Anion Gap 9 BUN 9.0 Creatinine 0.6 Est GFR (CKD-EPI)AfAm 133.98 Est GFR (CKD-EPI)NonAf 115.60 Random Glucose 123 H Lactic Acid Calcium 8.4 L Phosphorus 1.9 L Magnesium 1.6 L Total Bilirubin 6.0 H Direct Bilirubin 2.6 H AST 290 H ALT 145 H Alkaline Phosphatase 128 H D Troponin I Total Protein 6.5 Albumin 3.6 Total Amylase Lipase Beta-Hydroxybutyrate COVID-19 ([facility]) Hep A IgM Ab Confirm Hep Bs Antigen Hep B Core IgM Ab Hepatitis C Ab (EIA) Blood Type Antibody Screen Active Medications Generic Name Dose Route Start Last Admin Trade Name Freq PRN Reason Stop Dose Admin Enoxaparin Sodium 40 mg 07/11/20 10:00 07/11/20 10:08 Lovenox - SQ 40 mg DAILY ESTHER Administration Famotidine 20 mg 07/11/20 10:00 07/12/20 09:19 Pepcid - PO 20 mg DAILY ESTHER Administration Folic Acid 1 mg 07/12/20 10:00 07/12/20 09:19 Folic Acid - PO 1 mg DAILY ESTHER Administration Sodium Chloride 1,000 mls @ 100 mls/hr 07/11/20 19:00 07/11/20 20:11 Normal Saline - IV 100 mls/hr ASDIR ESTHER Administration Lorazepam 1 mg 07/13/20 05:00 Ativan - PO 07/13/20 23:01 0500,1100,1700,2300 ESTHER Lorazepam 1 mg 07/11/20 09:46 Ativan - PO 07/13/20 23:59 Q4H PRN Symptoms of Withdrawal Lorazepam 2 mg 07/11/20 11:00 07/12/20 04:02 Ativan - PO 07/12/20 23:01 2 mg 0500,1100,1700,2300 ESTHER Administration Lorazepam 0.5 mg 07/14/20 05:00 Ativan - PO 07/14/20 23:01 Q6H ESTHER Lorazepam 0.5 mg 07/14/20 00:00 Ativan - PO 07/15/20 00:00 Q4H PRN Symptoms of Withdrawal Lorazepam 0.5 mg 07/15/20 05:00 Ativan - PO 07/15/20 05:01 ONCE ONE Metoprolol Succinate 50 mg 07/11/20 10:00 07/12/20 09:19 Toprol Xl - PO 50 mg DAILY ESTHER Administration Pantoprazole Sodium 40 mg 07/12/20 10:00 Protonix - PO BID ESTHER Potassium Phos/Sodium Phos 2 packet 07/11/20 13:30 07/12/20 06:44 Phos-Nak Packet - PO 07/12/20 13:31 2 packet Q6H ESTHER Administration Thiamine HCl 100 mg 07/12/20 10:00 07/12/20 09:19 Vitamin B1 - PO 100 mg DAILY ESTHER Administration ASSESSMENT/PLAN: 50 year-old male with a [facility] signficant for HTN and alcohol abuse. Admitted for acute alcohol withdrawal. Acute alcohol withdrawal Alcoholic ketoacidosis Metabolic encephalopathy --last drink 2 days ago; active signs of withdrawal --elevated beta hydroxybutera and high anion gap 25 on admission --lactic acidosis, improving; repeat at noon --start ativan protocol --continue D5NS@100mL/hr --daily thiamine, folic acid --monitor electrolytes q12h for 48 hours Elevated troponin --initial troponin elevated followed by two negative values; likely demand, no signs of ACS --ECG: no sign of acute ischemic event --continuous cardiac monitoring Hyperbilirubinemia Transaministis --likely from alcohol abuse --US liver ordered --acute hepatitis panel ordered Thrombocytopenia --platelets dropped 26k --no signs of bleeding, monitor closely Hypertension --continue metoprolol FEN Fluids: D5NS@100mL/hr Electrolytes: replete as indicated Nutrition: regular diet Prolonged QT interval --seen on serial ECGs --close monitoring and repletion of Mg --avoid QTc prolonging agents Electrolyte derangement --repleting K, Mg, Phos Elevated lipase --CTAP w/contrast Dispo: continues to require inpatient care. Full code.
[2020-07-12] MEDS ORDERED: MAGNESIUM SULF 50% (8.12 MEQ/2 ML-1 GM VIAL) IVPB ONE (09:45)
[2020-07-12] MEDS ORDERED: PANTOPRAZOLE 40 MG TABLET PO SCH (10:00)
[2020-07-12] MEDS ORDERED: THIAMINE HCL 100 MG TABLET (FP) PO SCH (10:00)
[2020-07-12] MEDS ORDERED: MAGNESIUM SULFATE IN WATER 2 GM/50 ML IVPB IVPB ONE (10:00)
[2020-07-12] MEDS ORDERED: ENOXAPARIN NA (PORCINE) 40 MG/0.4 ML DISP.SYRIN SQ SCH (10:00)
[2020-07-12] MEDS ORDERED: FOLIC ACID 1 MG TABLET (FP) PO SCH (10:00)
[2020-07-12 10:04] LABS: ANISOCYTOSIS 1+
[2020-07-12] MEDS ORDERED: LACTULOSE 20 GM/30 ML UDC (FOR ORAL USE ONLY) PO PRN (13:31)
--- NOTE | 2020-07-12 13:32 | DS ---
Physical Exam: SUBJECTIVE: Patient seen and examined OBJECTIVE: Vital Signs Period Temp Pulse Resp BP Sys/Payne Pulse Ox Last 24 Hr 97.5 F-99 F 69-83 17-20 131-143/80-90 94-100 PHYSICAL EXAM GENERAL: The patient is awake, alert, and fully oriented, in no acute distress. HEAD: Normal with no signs of trauma. EYES: PERRL, extraocular movements intact, sclera anicteric, conjunctiva clear. ENT: Ears normal, nares patent, oropharynx clear without exudates, moist mucous membranes. NECK: Trachea midline, full range of motion, supple. LUNGS: Breath sounds equal, clear to auscultation bilaterally, no wheezes, no crackles, no accessory muscle use. HEART: Regular rate and rhythm, S1, S2 without murmur, rub or gallop. ABDOMEN: Soft, nontender, nondistended, normoactive bowel sounds, no guarding, no rebound, no hepatosplenomegaly, no masses. EXTREMITIES: 2+ pulses, warm, well-perfused, no edema. NEUROLOGICAL: Cranial nerves II through XII grossly intact. Normal speech, gait not observed. PSYCH: Normal mood, normal affect. SKIN: Warm, dry, normal turgor, no rashes or lesions noted. LABS Laboratory Results - last 24 hr 07/11/20 07/11/20 07/11/20 00:20 11:18 11:18 WBC RBC Hgb Hct MCV MCH MCHC RDW Plt Count MPV Absolute Neuts (auto) Neutrophils % Neutrophils % (Manual) Lymphocytes % Lymphocytes % (Manual) Monocytes % Monocytes % (Manual) Eosinophils % Eosinophils % (Manual) Basophils % Hypochromia Platelet Estimate Platelet Comment Anisocytosis PT with INR INR PTT (Actin FS) Sodium Potassium Chloride Carbon Dioxide Anion Gap BUN Creatinine Est GFR (CKD-EPI)AfAm Est GFR (CKD-EPI)NonAf Random Glucose Lactic Acid 1.6 Calcium Phosphorus Magnesium Total Bilirubin Direct Bilirubin AST ALT Alkaline Phosphatase Total Protein Albumin Total Amylase COVID-19 ([facility]) Not detected Hep A IgM Ab Confirm Negative Hep Bs Antigen Negative Hep B Core IgM Ab Negative Hepatitis C Ab (EIA) <0.1 Blood Type Antibody Screen 07/11/20 07/11/20 07/11/20 18:00 18:00 18:00 WBC 3.1 L RBC 4.26 Hgb 13.4 Hct 40.2 MCV 94.4 MCH 31.4 MCHC 33.2 RDW 15.6 Plt Count 26 L* D MPV 7.9 Absolute Neuts (auto) 1.8 Neutrophils % 59.1 Neutrophils % (Manual) Lymphocytes % 29.4 D Lymphocytes % (Manual) Monocytes % 8.5 Monocytes % (Manual) Eosinophils % 2.4 D Eosinophils % (Manual) Basophils % 0.6 Hypochromia Platelet Estimate Platelet Comment Anisocytosis PT with INR 18.9 H INR 1.71 H PTT (Actin FS) Sodium 130 L Potassium 3.8 Chloride 95 L Carbon Dioxide 26 Anion Gap 9 BUN 9.0 Creatinine 0.7 Est GFR (CKD-EPI)AfAm 125.75 Est GFR (CKD-EPI)NonAf 108.50 Random Glucose 167 H Lactic Acid Calcium 8.5 Phosphorus 1.7 L Magnesium 1.8 Total Bilirubin 6.9 H Direct Bilirubin 2.7 H AST 266 H ALT 130 H Alkaline Phosphatase 108 D Total Protein 6.6 Albumin 3.8 Total Amylase 95 COVID-19 ([facility]) Hep A IgM Ab Confirm Hep Bs Antigen Hep B Core IgM Ab Hepatitis C Ab (EIA) Blood Type Antibody Screen 07/11/20 07/12/20 07/12/20 19:30 07:03 07:03 WBC 3.7 L RBC 4.32 Hgb 13.7 Hct 41.0 MCV 94.9 MCH 31.7 MCHC 33.4 RDW 15.6 Plt Count 26 L* MPV 8.9 D Absolute Neuts (auto) 2.0 Neutrophils % No Result Required. Neutrophils % (Manual) 56.0 Lymphocytes % No Result Required. Lymphocytes % (Manual) 36.0 Monocytes % Monocytes % (Manual) 6 Eosinophils % Eosinophils % (Manual) 2.0 Basophils % Hypochromia 1+ Platelet Estimate Platelet Comment Anisocytosis 1+ PT with INR 20.6 H INR 1.86 H PTT (Actin FS) 30.7 Sodium Potassium Chloride Carbon Dioxide Anion Gap BUN Creatinine Est GFR (CKD-EPI)AfAm Est GFR (CKD-EPI)NonAf Random Glucose Lactic Acid Calcium Phosphorus Magnesium Total Bilirubin Direct Bilirubin AST ALT Alkaline Phosphatase Total Protein Albumin Total Amylase COVID-19 ([facility]) Hep A IgM Ab Confirm Hep Bs Antigen Hep B Core IgM Ab Hepatitis C Ab (EIA) Blood Type O POSITIVE Antibody Screen Negative 07/12/20 07:03 WBC RBC Hgb Hct MCV MCH MCHC RDW Plt Count MPV Absolute Neuts (auto) Neutrophils % Neutrophils % (Manual) Lymphocytes % Lymphocytes % (Manual) Monocytes % Monocytes % (Manual) Eosinophils % Eosinophils % (Manual) Basophils % Hypochromia Platelet Estimate Platelet Comment Anisocytosis PT with INR INR PTT (Actin FS) Sodium 132 L Potassium 3.7 Chloride 99 Carbon Dioxide 24 Anion Gap 9 BUN 9.0 Creatinine 0.6 Est GFR (CKD-EPI)AfAm 133.98 Est GFR (CKD-EPI)NonAf 115.60 Random Glucose 123 H Lactic Acid Calcium 8.4 L Phosphorus 1.9 L Magnesium 1.6 L Total Bilirubin 6.0 H Direct Bilirubin 2.6 H AST 290 H ALT 145 H Alkaline Phosphatase 128 H D Total Protein 6.5 Albumin 3.6 Total Amylase COVID-19 ([facility]) Hep A IgM Ab Confirm Hep Bs Antigen Hep B Core IgM Ab Hepatitis C Ab (EIA) Blood Type Antibody Screen HOSPITAL COURSE: Date of Admission:07/11/20 Date of Discharge: 07/12/20 Pre hospital course 50 year-old male with a [facility] signficant for HTN and alcohol abuse. Has been through two detox programs, [facility] in January 2019, and [facility] in September 2019. He was sober for a time but resumed drinking in past few weeks. He drinks 1 bottle of vodka per day, last drink was on 07/09/20. He has not been eating. He presented to the ED with LUQ pain, nausea and vomiting x 1 day. He complained of severe tremors in his hands. Dry heaving in the ED. ER course was notable for: (1) D5NS x 3L; NS x 1 L (2) Valium 10mg IVP x 3; ativan IVP 2mg x 1; librium PO 50mg x 1 (3) Total bili 5.9, AST/ALT/Alk phos 236/147/109 (4) Lactic acid 4.2 (5) Platelets 52k Subsequent hospital course Acute alcohol withdrawal Alcoholic ketoacidosis Alcoholic cirrhosis Metabolic encephalopathy --CT: hepatomegaly, fattly infiltration, numerous varices: perisplenic, gastrohepatic ligament, perihepatic, mesenteric --last drink on 07/09; +active signs withdrawal, mild mental confusion --elevated beta hydroxybutera and high anion gap 25 on admission --lactic acidosis improved, bili and transaminases trending up, INR trending up --started on ativan protocol --started on lactulose (ammonia level pending) --daily thiamine, folic acid --IV fluids Electrolyte derangement --repleting K, Mg, Phos Thrombocytopenia --worsening, now 26k --no signs of bleeding Prolonged QT interval --monitor lytes very closely, avoid QT prolonging agents Hypertension --continue metoprolol Elevated troponin --initial troponin elevated followed by two negative values; likely demand, no signs of ACS --ECG: no sign of acute ischemic event --continuous cardiac monitoring Minutes to complete discharge: 35 Discharge Summary Problems reviewed: Yes Reason For Visit: LEFT SIDED PAIN & NAUSEA Current Active Problems Alcohol withdrawal (Acute) Alcoholic ketoacidosis (Acute) Hyperbilirubinemia (Acute) Liver failure (Acute) Thrombocytopenia (Acute) Condition: Stable - Instructions - Home Medications Comprehensive Discharge Medication List: Ambulatory Orders Metoprolol Succinate 50 mg PO DAILY 07/10/20 This patient is new to me today: No Emergency Visit: Yes ED Registration Date: 07/11/20 Care time: The patient presented to the Emergency Department on the above date and was hospitalized for further evaluation of their emergent condition. Critical Care patient: Yes Total Critical Care Time (in minutes): 90 Critical Care Statement: The care of this patient involved high complexity decision making to prevent further life threatening deterioration of the patient's condition and/or to evaluate & treat vital organ system(s) failure or risk of failure. - Discharge Referral Referred to [facility] No
[2020-07-12] MEDS ORDERED: LORazepam 2 MG/ML SDV VIAL IVPUSH ONE (14:00)
[2020-07-12 16:43] VITALS: BP 105/58; PULSE 74; TEMP 98.9
[2020-07-12] MEDS ORDERED: LACTULOSE 20 GM/30 ML UDC (FOR ORAL USE ONLY) PO SCH (18:00)
[2020-07-13] MEDS ORDERED: LORazepam 1 MG TABLET PO SCH (05:00)
[2020-07-14] MEDS ORDERED: LORazepam 0.5 MG TABLET PO PRN
[2020-07-14] MEDS ORDERED: LORazepam 0.5 MG TABLET PO SCH (05:00)
[2020-07-15] MEDS ORDERED: LORazepam 0.5 MG TABLET PO ONE (05:00)
== END 2020-07-12 17:20 | disposition short-term general hospital (02) | DRG 432 ==
LOC: FER 22:19 → FM/S 07-11 02:59 → UNDOADMIN 07-11 06:02 → FM/S 07-11 06:02
PROVIDERS: ADMIT Internal Medicine; ATTEND Nurse Practitioner Acute Care
DX: K70.30 Alcoholic cirrhosis of liver without ascites (principal); G93.41 Metabolic encephalopathy; F10.230 Alcohol dependence with withdrawal, uncomplicated; E87.2 Acidosis; I10 Essential (primary) hypertension; K72.90 Hepatic failure, unspecified without coma; R94.31 Abnormal electrocardiogram [ECG] [EKG]; E80.6 Other disorders of bilirubin metabolism; D69.6 Thrombocytopenia, unspecified
CPT/HCPCS: 36415; 71045-TC-FY; 74177-TC; 80048; 80053; 80074; 80076; 80307; 81003; 82010; 82140; 82150; 83605; 83690; 83735; 84100; 84484; 85025; 85610; 85730; 86850; 86900; 86901; 93005; 99285-25; C9803; Q9967; U0003